=== PATIENT | female | born 1970 | race African-American/Black ===

== ENCOUNTER 2016-12-17 19:23 | Observation (INO) | payer MEDICARE, BC ==
[~2016-12-17 19:23] MED LIST: ASPI81CH CHEW; PLAV75TA29 PO; PRAV40TA PO; VERA1TAB9 PO
[2016-12-17 19:24] VITALS: BP 167/96; PULSE 71; RESP 16; TEMP 98.3; O2SAT 100
[2016-12-17] MEDS ORDERED: METO50TA PO (20:07)
[2016-12-17] MEDS ORDERED: LEVE500T8 PO (20:07)
[2016-12-17] MEDS ORDERED: BUTA1TAB30 PO (20:07)
[2016-12-17] MEDS ORDERED: SODIUM CHLORIDE 0.9% FLUSH 10 ML FLUSH IVF PRN (20:15)
[2016-12-17 20:22] VITALS: BP 168/100; O2SAT 100
--- NOTE | 2016-12-17 20:29 | PD ---
HPI Chief Complaint: Chest Pain Time Seen by Provider: 19:50 Travel History International Travel<30 days: No Contact w/Intl Traveler<30days: No Traveled to known affect area: No History of Present Illness HPI Patient comes in complaining of substernal chest pain that began this morning. Pain is constant there, but wax and wanes in intensity. Describes pain as a pressure-like in nature. Denies anything making it better or worse. Patient reports 2 weeks ago she had internal heart monitor removed in [place]. Patient states the monitor was placed here locally by Dr. Rajan noriega in March of 2014. Patient denies any shortness of breath, numbness tingling anywhere, fevers, neck pain, dull pain, loss change in bowel or bladder. Patient reports 2 days ago she was having some vomiting and yesterday she noticed some increased weakness in her right upper and lower extremities that she reports residual from previous stroke. Patient takes Plavix and aspirin at bedtime. Patient does not have a neurologist here locally but she use to see Dr. Teixeira. Patient states she just came back to the area a week ago. Patient reports her last stress test was in 2013 and denies ever having a cardiac catheter. PFSH Past Medical History Hx Anticoagulant Therapy: Yes Anemia: Yes (RECD TRANSFUSIONS 12/06/07) Blood Disorders: Yes (ANEMIA) Anxiety: No Depression: No Cancer: No Cardiovascular Problems: Yes (had an internal heart monitor which has been removed ) Chemotherapy: No Cerebrovascular Accident: Yes Diabetes: No Diminished Hearing: No Endocrine: No Gastrointestinal Disorders: No Glaucoma: No Genitourinary: No Hepatitis: No Hiatal Hernia: No Hypertension: No Immune Disorder: No Implanted Vascular Access Dvce: Yes Medical other: Yes (STROKE 2008, ANEMIA) Musculoskeletal: No Neurologic: Yes (TIA) Psychiatric: No Reproductive: No Respiratory: No Immunizations Current: Yes Radiation Therapy: No Thyroid Disease: No ?: Not : 7 Para: 6 Miscarriage: 1 Tubal Ligation: Yes Past Surgical History Abdominal Surgery: No Body Medical Devices: [employer] Cardiac Surgery: No Ear Surgery: No Endocrine Surgery: No Eye Surgery: No Genitourinary Surgery: No Gynecologic Surgery: Yes (PARTIAL HYSTERECTOMY) Hysterectomy: Yes Neurologic Surgery: No Oral Surgery: No Pacemaker: No Thoracic Surgery: No Other Surgery: Yes Social History Alcohol Use: No Tobacco Use: No Substance Use: No Allergies-Medications (Allergen,Severity, Reaction): Coded Allergies: No Known Allergies (Verified , 12/17/16) Reported Meds & Prescriptions Reported Meds & Active Scripts Active Aspirin 81 Mg Chew 81 Mg CHEW DAILY Plavix (Clopidogrel Bisulfate) 75 Mg Tab 75 Mg PO DAILY Reported Metoprolol Tartrate 50 Mg Tab 50 Mg PO BID Levetiracetam 500 Mg Tab 500 Mg PO BID Butalbital-Acetaminophen 50-325 Mg Tab 1 Tab PO Q12HR PRN Do not exceed 6 tablets per day. Review of Systems Except as stated in HPI: all other systems reviewed are Neg Physical Exam Narrative GENERAL: Well-developed, overly nourished, in no acute distress, and non-ill appearing. SKIN: Focused skin assessment warm and dry. HEAD: Atraumatic. Normocephalic. EYES: Pupils equal and round. EOMI. No scleral icterus. No injection or drainage. ENT: No nasal bleeding or discharge. Mucous membranes pink and moist. NECK: Trachea midline. Supple. No nuclear rigidity. CARDIOVASCULAR: Regular rate and rhythm. No murmur appreciated. RESPIRATORY: No accessory muscle use. No respiratory distress. Clear to auscultation. Breath sounds equal bilaterally. GASTROINTESTINAL: Abdomen soft, non-tender, nondistended. Hepatic and splenic margins not palpable. Normal bowel sounds 4. No pulsatile mass. MUSCULOSKELETAL: No obvious deformities. No clubbing. No cyanosis. No edema. Full range of motion. Shoulder:FROM equal BL with passive flexion, extension, Abduction, Adduction, internal/external rotation, and pronation/supination. Sensation equal BL deltoid muscles. Pulses equal BL distal to injury. Capillary refill less than 2 seconds distal to injury and equal BL. FROM distal to injury and equal BL. Strength distal to injury equal BL. NV intact distal to injury equal BL. Flexion and extension of thumb equal BL. Equal strength and movement with abduction/adductions of BL fingers. Brand Ambassador strength equal BL. Strength 5 out of 5 and equal bilaterally with plantar and dorsiflexion. Sensation intact over first web spacing bilaterally. NEUROLOGICAL: Awake and alert. No obvious cranial nerve deficits. Motor grossly within normal limits. Normal speech. No facial droop. No tongue deviation. Equal Rise and Fall of the Eyebrows. PSYCHIATRIC: Appropriate mood and affect; insight and judgment normal. Data Data Last Documented VS Vital Signs Date Time Temp Pulse Resp B/P Pulse Ox O2 Delivery O2 Flow Rate FiO2 12/17/16 20:22 100 Room Air 12/17/16 20:22 168/100 12/17/16 19:24 98.3 71 16 Orders Electrocardiogram (12/17/16 20:15) Basic Metabolic Panel (Bmp) (12/17/16 20:15) Ckmb (Isoenzyme) Profile (12/17/16 20:15) Complete Blood Count With Diff (12/17/16 20:15) Magnesium (Mg) (12/17/16 20:15) Prothrombin Time / Inr (Pt) (12/17/16 20:15) Act Partial Throm Time (Ptt) (12/17/16 20:15) Troponin I (12/17/16 20:15) Chest, Single Ap (12/17/16 20:15) Ecg Monitoring (12/17/16 20:15) Bilateral Bp Monitoring (12/17/16 20:15) Iv Access Insert/Monitor (12/17/16 20:15) Oximetry (12/17/16 20:15) Oxygen Administration (12/17/16 20:15) Sodium Chloride 0.9% Flush (Ns Flush) (12/17/16 20:15) Ct Brain W/O Iv Contrast(Rout) (12/17/16 ) CKMB (12/17/16 20:25) CKMB% (12/17/16 20:25) Aspirin Chew (Aspirin Chew) (12/17/16 23:00) Nitroglycerin 2% Oint (Nitroglycerin 2% (12/17/16 23:00) Clopidogrel (Plavix) (12/17/16 23:00) Admit Order (Ed Use Only) (12/17/16 23:02) Activity Bed Rest With Brp (12/17/16 23:03) Vital Signs (Adult) Q4H (12/17/16 23:03) Cardiac Rhythm .As Directed (12/17/16 23:03) Notify Dr: Other .PRN (12/17/16 23:03) Notify Parameters (12/17/16 23:03) Resp Oxygen Nasal Cannula (12/17/16 ) Ckmb (Isoenzyme) Profile (12/17/16 23:25) Ckmb (Isoenzyme) Profile (12/18/16 02:25) Troponin I (12/17/16 23:25) Troponin I (12/18/16 02:25) Electrocardiogram (12/17/16 23:25) Electrocardiogram (12/18/16 02:25) ^ Obtain (12/17/16 23:03) Sodium Chloride 0.9% Flush (Ns Flush) (12/17/16 23:15) Sodium Chloride 0.9% Flush (Ns Flush) (12/18/16 09:00) Club Director / Telemetry PEÑA.Q8H (12/17/16 23:03) Labs Laboratory Tests Test 12/17/16 20:25 White Blood Count 7.0 TH/MM3 Red Blood Count 4.20 MIL/MM3 Hemoglobin 12.5 GM/DL Hematocrit 37.0 % Mean Corpuscular Volume 88.1 FL Mean Corpuscular Hemoglobin 29.7 PG Mean Corpuscular Hemoglobin 33.7 % Concent Red Cell Distribution Width 13.6 % Platelet Count 304 TH/MM3 Mean Platelet Volume 8.1 FL Neutrophils (%) (Auto) 34.8 % Lymphocytes (%) (Auto) 56.0 % Monocytes (%) (Auto) 8.2 % Eosinophils (%) (Auto) 0.6 % Basophils (%) (Auto) 0.4 % Neutrophils # (Auto) 2.4 TH/MM3 Lymphocytes # (Auto) 3.9 TH/MM3 Monocytes # (Auto) 0.6 TH/MM3 Eosinophils # (Auto) 0.0 TH/MM3 Basophils # (Auto) 0.0 TH/MM3 CBC Comment DIFF FINAL Differential Comment Prothrombin Time 10.1 SEC Prothromb Time International 0.9 RATIO Ratio Activated Partial 25.5 SEC Thromboplast Time Sodium Level 136 MEQ/L Potassium Level 6.3 MEQ/L Chloride Level 104 MEQ/L Carbon Dioxide Level 27.1 MEQ/L Anion Gap 5 MEQ/L Blood Urea Nitrogen 13 MG/DL Creatinine 0.93 MG/DL Estimat Glomerular Filtration 78 ML/MIN Rate Random Glucose 93 MG/DL Calcium Level 8.7 MG/DL Magnesium Level 2.0 MG/DL Total Creatine Kinase 102 U/L Creatine Kinase MB 0.6 NG/ML Troponin I LESS THAN 0.02 NG/ML MDM Medical Decision Making Medical Screen Exam Complete: Yes Emergency Medical Condition: Yes Interpretation(s) Chest x-ray read by the radiologist shows: No evidence of acute cardiopulmonary disease. EKG reviewed by Dr. Talavera shows sinus rhythm with ventricular rate of 62. No STEMI. CT the head read by the radiologist shows: Negative noncontrast CT of the head. Differential Diagnosis CVA, TIA, acute coronary syndrome, electrolyte abnormality, atypical chest pain , unstable angina, other Narrative Course Patient was seen and examined. Laboratory and radiological studies were obtained and reviewed. After negative CT the head patient was given aspirin and Plavix. Elevated potassium was likely from blood being hemolyzed. There are no EKG changes and kidney function is normal. Discussed patient with Dr. Talavera was in agreement with plan of care and disposition. Discussed all findings and plan care of patient, who was agreeable for admission. All questions were answered. Patient remained stable throughout ED course. Diagnosis Primary Impression: Chest pain Qualified Code: R07.9 - Chest pain, unspecified type Admitting Information Admitting Physician Requests: Observation Condition: Stable Johann Adams December 17, 2016 20:29
[2016-12-17 20:35] LABS: AUTOMATED NEUTROPHIL # 2.4 TH/MM3 (1.8-7.7); BASOPHIL % 0.4 % (0.0-2.0); EOSINOPHIL % 0.6 % (0.0-4.0); HEMO FLAGS DIFF FINAL; LYMPHOCYTE # 3.9 TH/MM3 (1.0-4.8); MEAN CELL VOLUME 88.1 FL (80.0-100.0); MEAN CORPUSCULAR HEMOGLOBIN 29.7 PG (27.0-34.0); MEAN CORPUSCULAR HGB CONC 33.7 % (32.0-36.0); MONO % 8.2 % (0.0-8.0); NEUT % 34.8 % (16.0-70.0); PLATELET COUNT 304 TH/MM3 (150-450); RED CELL DISTRIBUTION WIDTH 13.6 % (11.6-17.2)
--- NOTE | 2016-12-17 20:40 | RADRPT ---
EXAM DATE/TIME: 12/17/2016 20:17 [facility] COMPARISON: CHEST PA & LAT, May 07, 2014, 17:53. INDICATIONS : Left sided chest pain. MEDICAL HISTORY : Stroke. 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 ENCOUNTER: Initial ACUITY: 1 day PAIN SCORE: 4/10 LOCATION: Left chest FINDINGS: A single view of the chest demonstrates the lungs to be symmetrically aerated without evidence of mas s, infiltrate or effusion. The cardiomediastinal contours are unremarkable. Osseous structures are intact. CONCLUSION: No evidence of acute cardiopulmonary disease. David Arthur MD on December 17, 2016 at 20:38 Board Certified Radiologist. This report was verified electronically.
[2016-12-17 21:03] LABS: APTT (PATIENT) 25.5 SEC (24.3-30.1); INTERNATIONAL NORMALIZED RATIO 0.9 RATIO; PROTHROMBIN TIME - PATIENT 10.1 SEC (9.8-11.6)
[2016-12-17 21:20] LABS: ANION GAP 5 MEQ/L (5-15); BICARBONATE 27.1 MEQ/L (21.0-32.0); BLOOD UREA NITROGEN 13 MG/DL (7-18); CHLORIDE 104 MEQ/L (98-107); CREATINE KINASE 102 U/L (26-192); GLOMERULAR FILTRATION RATE 78 ML/MIN (>89); SODIUM (NA) 136 MEQ/L (136-145)
[2016-12-17 21:21] LABS: POTASSIUM 6.3 MEQ/L (3.5-5.1)
[2016-12-17 21:34] LABS: CKMB 0.6 NG/ML (0.5-3.6)
--- NOTE | 2016-12-17 22:32 | RADRPT ---
EXAM DATE/TIME: 12/17/2016 22:02 [facility] COMPARISON: CT BRAIN W/O CONTRAST, June 23, 2016, 6:11. INDICATIONS : Right sided weakness. RADIATION DOSE: 45.38 CTDIvol (mGy) MEDICAL HISTORY : Cerebrovascular disease. Cardiovascular disease SURGICAL HISTORY : Hysterectomy. ENCOUNTER: Initial ACUITY: 1 day PAIN SCALE: 0/10 LOCATION: cranial TECHNIQUE: Multiple contiguous axial images were obtained of the head. Using automated exposure control and adj ustment of the mA and/or kV according to patient size, radiation dose was kept as low as reasonably a chievable to obtain optimal diagnostic quality images. FINDINGS: CEREBRUM: The ventricles are normal for age. No evidence of midline shift, mass lesion, hemorrhage or acute in farction. No extra-axial fluid collections are seen. POSTERIOR FOSSA: The cerebellum and brainstem are intact. The 4th ventricle is midline. The cerebellopontine angle i s unremarkable. EXTRACRANIAL: The visualized portion of the orbits is intact. SKULL: The calvaria is intact. No evidence of skull fracture. CONCLUSION: Negative noncontrast head CT. David Arthur MD on December 17, 2016 at 22:30 Board Certified Radiologist. This report was verified electronically.
[2016-12-17] MEDS ORDERED: ASPIRIN 81 MG CHEW TAB PO ONE (23:00)
[2016-12-17] MEDS ORDERED: CLOPIDOGREL 75 MG TAB PO ONE (23:00)
[2016-12-17] MEDS ORDERED: NITROGLYCERIN 2% OINT 1 GM PACKET TOP ONE (23:00)
[2016-12-17] MEDS ORDERED: SODIUM CHLORIDE 0.9% FLUSH 10 ML FLUSH IV FLUSH PRN (23:15)
[2016-12-17 23:42] VITALS: BP 140/81; PULSE 72; RESP 16; O2SAT 98
[2016-12-18 00:29] VITALS: BP 115/75; PULSE 77; RESP 18; TEMP 97.6; O2SAT 97
[2016-12-18 01:46] LABS: CREATINE KINASE 44 U/L (26-192)
[2016-12-18 01:56] VITALS: PULSE 75
[2016-12-18 03:11] LABS: CREATINE KINASE 45 U/L (26-192)
[2016-12-18 03:43] VITALS: BP 96/57; PULSE 63; RESP 18; TEMP 97.9; O2SAT 100
[2016-12-18 04:00] VITALS: PULSE 73
[2016-12-18 08:15] LABS: BICARBONATE 28.7 MEQ/L (21.0-32.0); POTASSIUM 3.9 MEQ/L (3.5-5.1)
[2016-12-18 08:19] VITALS: BP 116/73; PULSE 66; RESP 18; TEMP 98.4; O2SAT 97
--- NOTE | 2016-12-18 08:37 | HHI.DCPOC ---
Discharge Care Plan Diagnosis: (1) Chest pain, atypical (2) Hypertension (3) Hyperlipidemia Goals to Promote Your Health * To prevent worsening of your condition and complications * To maintain your health at the optimal level Directions to Meet Your Goals Take your medications as prescribed Follow your dietary instruction Follow activity as directed Keep your appointments as scheduled Take your immunizations and boosters as scheduled If your symptoms worsen call your PCP, if no PCP go to Urgent Care Center or Emergency Room Smoking is Dangerous to Your Health. Avoid second hand smoke Call the 24-hour hour crisis hotline for domestic abuse at [facility] December 18, 2016 08:37
--- NOTE | 2016-12-18 08:42 | HHI.HP ---
HPI Primary Care Physician No Primary Care Physician Chief Complaint Chest pain History of Present Illness This is a 46-year-old female that presents to ED with a complaint of a left- sided chest discomfort that began yesterday morning. It felt like contractions. Would last a few seconds but continued to recur. She had no shortness breath nausea or diaphoresis with the symptoms. She states that couple weeks ago while in [place] she had a loop recorder removed and the dentist/owner told her that she ever had the chest pain to go immediately to the hospital. She is moving back to this area. Does not have a dentist/owner at the time. Denies history of CAD. Denies calf pain or swelling. Denies inspirational chest discomfort. Review of Systems General: Patient denies fevers, chills recent, and recent travel HEENT: Patient denies headache, sore throat, difficulty swallowing. Cardiovascular: Has the chest discomfort as mentioned above. Denies sensation of heart beating rapidly or irregularly. No syncope. Denies diaphoresis. Respiratory: Denies shortness of breath or inspirational chest discomfort. Denies coughing wheezing or hemoptysis. GI: Patient denies nausea, vomiting, diarrhea, abdominal pain, bloody stools. Musculoskeletal: Patient denies joint pain or edema. Denies calf pain or edema. Neurovascular: Patient denies numbness, tingling, weakness in extremities. Denies headache. Endocrine: Denies polyuria and polydipsia. Hematologic: Denies easy bruising. Skin: Denies rash or itching. Past Family Social History Allergies: Coded Allergies: No Known Allergies (Verified , 12/17/16) Past Medical History History of CVA, TIA, hyperlipidemia, hypertension. Denies diabetes and CAD. Past Surgical History Knee surgery. She had a loop recorder removed a couple weeks ago in [place]. Partial hysterectomy Reported Medications Reported Meds & Active Scripts Active Aspirin 81 Mg Chew 81 Mg CHEW DAILY Plavix (Clopidogrel Bisulfate) 75 Mg Tab 75 Mg PO DAILY Reported Metoprolol Tartrate 50 Mg Tab 50 Mg PO BID Levetiracetam 500 Mg Tab 500 Mg PO BID Butalbital-Acetaminophen 50-325 Mg Tab 1 Tab PO Q12HR PRN Do not exceed 6 tablets per day. Active Ordered Medications Current Medications Medications (Trade) Dose Ordered Sig/Tigre Route Start Time Stop Time Status Last Admin (NS Flush) 2 ml UNSCH PRN IVF 12/17/16 20:15 (NS Flush) 2 ml UNSCH PRN IV FLUSH 12/17/16 23:15 (NS Flush) 2 ml BID IV FLUSH 12/18/16 09:00 Family History Denies family history of CAD. Social History Patient does not smoke. Physical Exam Vital Signs Vital Signs Date Time Temp Pulse Resp B/P Pulse Ox O2 Delivery O2 Flow Rate FiO2 12/18/16 08:19 98.4 66 18 116/73 97 12/18/16 06:53 21 12/18/16 04:00 73 12/18/16 03:43 97.9 63 18 96/57 100 12/18/16 01:56 75 12/18/16 00:29 97.6 77 18 115/75 97 12/17/16 23:42 72 16 140/81 98 Room Air 12/17/16 20:22 100 Room Air 12/17/16 20:22 100 Room Air 12/17/16 20:22 168/100 12/17/16 19:24 98.3 71 16 167/96 100 Room Air Physical Exam GENERAL: This is a well-nourished, well-developed patient, in no apparent distress. Patient speaks in clear complete sentences. Patient is pleasant. HEENT: Head is atraumatic and normocephalic. Neck is supple without lymphadenopathy and trachea is midline. No JVD or carotid bruits. CARDIOVASCULAR: Regular rate and rhythm without murmurs, gallops, or rubs. RESPIRATORY: Clear to auscultation. Breath sounds equal bilaterally. No wheezes , rales, or rhonchi. Chest wall is nontender. No use of accessory muscles. GASTROINTESTINAL: Abdomen is nontender, nondistended. Abdomen soft. No obvious pulsatile mass or bruit. No CVA tenderness. Strong femoral pulses bilaterally. Normal bowel sounds in all quadrants. MUSCULOSKELETAL: Patient is moving upper and lower extremities freely. No calf tenderness or edema, no Homans sign. Strong pulses in upper and lower extremities. NEUROLOGICAL: Patient is alert and oriented. Cranial nerves 2-12 are grossly intact. No focal deficits and speech is clear. SKIN: No rash and turgor is normal. Laboratory Laboratory Tests Test 12/17/16 12/17/16 12/18/16 12/18/16 20:25 23:47 02:25 07:44 White Blood Count 7.0 Red Blood Count 4.20 Hemoglobin 12.5 Hematocrit 37.0 Mean Corpuscular Volume 88.1 Mean Corpuscular Hemoglobin 29.7 Mean Corpuscular Hemoglobin 33.7 Concent Red Cell Distribution Width 13.6 Platelet Count 304 Mean Platelet Volume 8.1 Neutrophils (%) (Auto) 34.8 Lymphocytes (%) (Auto) 56.0 Monocytes (%) (Auto) 8.2 Eosinophils (%) (Auto) 0.6 Basophils (%) (Auto) 0.4 Neutrophils # (Auto) 2.4 Lymphocytes # (Auto) 3.9 Monocytes # (Auto) 0.6 Eosinophils # (Auto) 0.0 Basophils # (Auto) 0.0 CBC Comment DIFF FINAL Differential Comment Prothrombin Time 10.1 Prothromb Time International 0.9 Ratio Activated Partial 25.5 Thromboplast Time Sodium Level 136 139 Potassium Level 6.3 3.9 Chloride Level 104 105 Carbon Dioxide Level 27.1 28.7 Anion Gap 5 5 Blood Urea Nitrogen 13 10 Creatinine 0.93 0.76 Estimat Glomerular Filtration 78 99 Rate Random Glucose 93 97 Calcium Level 8.7 8.5 Magnesium Level 2.0 Total Creatine Kinase 102 44 45 Creatine Kinase MB 0.6 Troponin I LESS THAN 0.02 LESS THAN 0.02 LESS THAN 0.02 Result Diagram: 12/17/16202412/18/16 0744 Imaging Last 48 hours Impressions Chest X-Ray 12/17/162014 Signed Impressions: Service Date/Time: Saturday, December 17, 2016 20:17 - CONCLUSION: No evidence of acute cardiopulmonary disease. David Arthur MD Head CT 12/17/16 0000 Signed Impressions: Service Date/Time: Saturday, December 17, 2016 22:02 - CONCLUSION: Negative noncontrast head CT. David Arthur MD Course EKGs have sinus rhythm. Occasional PVCs. No significant ST segment depressions or elevations. Assessment and Plan Assessment and Plan * Chest pain: Her discomforts are atypical. She has been seen by Dr. Isaac Biggs of cardiology in the chest pain center and has had serial EKGs and troponins for ruling out purposes. There will be no further testing. Patient will be discharged home at this time with instructions to follow-up with a local physician. * History of CVA and TIA: Continue current medications. * Hypertension: Continue current medication. * Hyperkalemia: Her potassium was 6.3 initially in the ED. Hemostasis is noted in the lab. A repeated basic metabolic panel this morning reveals a potassium of 3.9. Patient is stable at this time. She is agreeable to this plan. [facility] December 18, 2016 08:42
[2016-12-18] MEDS ORDERED: SODIUM CHLORIDE 0.9% FLUSH 10 ML FLUSH IV FLUSH SCH (09:00)
--- NOTE | 2016-12-18 14:57 | EKG ---
Date Performed: 12/18/2016 Time Performed: 02:39:39 PTAGE: 46 years EKG: Sinus rhythm WITH OCCASIONAL VENTRICULAR PREMATURE COMPLEXES NONSPECIFIC T-WAVE ABNORMALITY BORDERLINE ECG PREVIOUS TRACING : 12/17/2016 23.49 Since previous tracing, no significant change noted DOCTOR: Isaac Biggs Interpretating Date/Time 12/18/2016 14:55:45
--- NOTE | 2016-12-18 14:58 | EKG ---
Date Performed: 12/17/2016 Time Performed: 23:49:43 PTAGE: 46 years EKG: Sinus rhythm ABNORMAL ECG PREVIOUS TRACING : 06/16/2016 22.19 Since previous tracing, no significant change noted DOCTOR: Isaac Biggs Interpretating Date/Time 12/18/2016 14:56:32
--- NOTE | 2016-12-18 14:59 | EKG ---
Date Performed: 12/17/2016 Time Performed: 20:18:02 PTAGE: 46 years EKG: Sinus rhythm NORMAL ECG NO PREVIOUS TRACING DOCTOR: Isaac Biggs Interpretating Date/Time 12/18/2016 14:57:11
== END 2016-12-18 10:46 | disposition home or self-care (01) ==
LOC: NEPE 19:23 → NEDA 23:04 → NEPHCDU 12-18 00:04
DX: R07.89 Other chest pain (principal); E78.5 Hyperlipidemia, unspecified; I10 Essential (primary) hypertension; E87.5 Hyperkalemia; Z86.73 Personal history of transient ischemic attack (TIA), and cerebral infarction without residual deficits; Z79.82 Long term (current) use of aspirin; Z79.02 Long term (current) use of antithrombotics/antiplatelets
CPT/HCPCS: 70450; 71010; 80048; 82550; 82552; 83735; 84484; 85025; 85610; 85730; 93005; G0378

== ENCOUNTER 2017-02-04 15:16 | Observation (INO) | payer MEDICARE, OTHER ==
[~2017-02-04] VITALS: Ht 165.1 cm; Wt 105.0 kg
[~2017-02-04 15:16] MED LIST changes: +BUTA1TAB30 PO; +LEVE500T8 PO; +METO50TA PO; -PRAV40TA PO; -VERA1TAB9 PO
[2017-02-04 18:47] VITALS: BP 157/84; PULSE 88; RESP 20; TEMP 97.8; O2SAT 99
[2017-02-04] MEDS ORDERED: ASPI325T PO (18:58)
[2017-02-04] MEDS ORDERED: SODIUM CHLORIDE 0.9% FLUSH 10 ML FLUSH IVF PRN (19:15)
--- NOTE | 2017-02-04 19:15 | PD ---
HPI Chief Complaint: Seizure Time Seen by Provider: 19:15 Travel History International Travel<30 days: No Contact w/Intl Traveler<30days: No Traveled to known affect area: No History of Present Illness HPI 46-year-old female presents to the emergency department for evaluation of seizure that occurred this afternoon. Patient's daughter states she witnessed the seizure. She states that she was sitting on the couch and she started to blink rapidly looking off to the side. She then started having convulsing of all her joints. Her states this lasted approximately 6 minutes. Her daughter states that she did not hit her head as she was lying on the couch. The patient reports history of seizures since around gi. She states she is on Keppra. She also states that since around 2:30 this afternoon, she is had some worsening left-sided weakness. She reports chronic mild left-sided weakness from previous CVA, but states it is worse than normal. She also states the left side of her face feels weak. She also reports a mild headache. She denies any chest pain or shortness of breath. No abdominal pain. No vomiting. Patient is on Plavix. PFSH Past Medical History Hx Anticoagulant Therapy: Yes Anemia: Yes (RECD TRANSFUSIONS 12/06/07) Blood Disorders: Yes (ANEMIA) Anxiety: No Depression: No Cancer: No Cardiovascular Problems: Yes Chemotherapy: No Cerebrovascular Accident: Yes Diabetes: No Diminished Hearing: No Endocrine: No Gastrointestinal Disorders: No Glaucoma: No Genitourinary: No Hepatitis: No Hiatal Hernia: No Hypertension: No Immune Disorder: No Implanted Vascular Access Dvce: Yes Medical other: Yes (STROKE 2008, ANEMIA) Musculoskeletal: No Neurologic: Yes (TIA) Psychiatric: No Reproductive: No Respiratory: No Immunizations Current: Yes Radiation Therapy: No Thyroid Disease: No Tetanus Vaccination: < 5 Years ?: Not : 7 Para: 6 Miscarriage: 1 Tubal Ligation: Yes Past Surgical History Abdominal Surgery: No 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 Cardiac Surgery: No Ear Surgery: No Endocrine Surgery: No Eye Surgery: No Genitourinary Surgery: No Gynecologic Surgery: Yes (PARTIAL HYSTERECTOMY) Hysterectomy: Yes Joint Replacement: Yes (lt knee 2016) Neurologic Surgery: No Oral Surgery: No Pacemaker: No Thoracic Surgery: No Other Surgery: Yes Social History Alcohol Use: No Tobacco Use: No Substance Use: No Allergies-Medications (Allergen,Severity, Reaction): Coded Allergies: No Known Allergies (Verified , 02/04/17) Reported Meds & Prescriptions Reported Meds & Active Scripts Active Aspirin 81 Mg Chew 81 Mg CHEW DAILY Plavix (Clopidogrel Bisulfate) 75 Mg Tab 75 Mg PO DAILY Reported Aspirin 325 Mg Tab 325 Mg PO DAILY Metoprolol Tartrate 50 Mg Tab 50 Mg PO BID Levetiracetam 500 Mg Tab 500 Mg PO BID Butalbital-Acetaminophen 50-325 Mg Tab 1 Tab PO Q12HR PRN Do not exceed 6 tablets per day. Review of Systems Except as stated in HPI: all other systems reviewed are Neg Physical Exam Narrative GENERAL: Well-nourished, well-developed female patient, afebrile SKIN: Focused skin assessment warm/dry. HEAD: Normocephalic. Atraumatic. EYES: No scleral icterus. No injection or drainage. NECK: Supple, trachea midline. No JVD or lymphadenopathy. CARDIOVASCULAR: Regular rate and rhythm without murmurs, gallops, or rubs. Bilateral radial and pedal pulses are 2+. RESPIRATORY: Breath sounds equal bilaterally. No accessory muscle use. Lungs sounds are clear to auscultation. GASTROINTESTINAL: Abdomen soft, non-tender, nondistended. MUSCULOSKELETAL: No cyanosis, or edema. Left upper extremity strength 4/5, right upper extremity strength 5/5. Left lower extremities strength 4/5, right lower extremity strength 5/5. All extremities are neurovascularly intact. BACK: Nontender without obvious deformity. No CVA tenderness. NEUROLOGICAL: Awake and alert. Cranial nerves II through XII intact. Motor and sensory grossly within normal limits. Normal speech. Finger to nose is normal bilaterally. Patient unable to complete heel to hart due to history of knee replacement surgery. Data Data Last Documented VS Vital Signs Date Time Temp Pulse Resp B/P Pulse Ox O2 Delivery O2 Flow Rate FiO2 02/04/17 19:35 95 17 100 Room Air 02/04/17 19:35 140/93 02/04/17 18:47 97.8 Orders Electrocardiogram (02/04/17 19:13) Prothrombin Time / Inr (Pt) (02/04/17 19:13) Act Partial Throm Time (Ptt) (02/04/17 19:13) Complete Blood Count With Diff (02/04/17 19:13) Comprehensive Metabolic Panel (02/04/17 19:13) Creatine Kinase (Cpk) (02/04/17 19:13) Drug Screen, Random Urine (02/04/17 19:13) Troponin I (02/04/17 19:13) Urinalysis - C+S If Indicated (02/04/17 19:13) Ct Brain W/O Iv Contrast(Rout) (02/04/17 19:13) Chest, Single Ap (02/04/17 19:13) Ecg Monitoring (02/04/17 19:13) Iv Access Insert/Monitor (02/04/17 19:13) Oximetry (02/04/17 19:13) Sodium Chloride 0.9% Flush (Ns Flush) (02/04/17 19:15) Admit Order (Ed Use Only) (02/04/17 20:41) Labs Laboratory Tests Test 02/04/17 19:20 White Blood Count 7.7 TH/MM3 Red Blood Count 4.23 MIL/MM3 Hemoglobin 12.5 GM/DL Hematocrit 36.6 % Mean Corpuscular Volume 86.6 FL Mean Corpuscular Hemoglobin 29.5 PG Mean Corpuscular Hemoglobin 34.1 % Concent Red Cell Distribution Width 12.7 % Platelet Count 306 TH/MM3 Mean Platelet Volume 7.9 FL Neutrophils (%) (Auto) 66.0 % Lymphocytes (%) (Auto) 27.2 % Monocytes (%) (Auto) 6.0 % Eosinophils (%) (Auto) 0.1 % Basophils (%) (Auto) 0.7 % Neutrophils # (Auto) 5.1 TH/MM3 Lymphocytes # (Auto) 2.1 TH/MM3 Monocytes # (Auto) 0.5 TH/MM3 Eosinophils # (Auto) 0.0 TH/MM3 Basophils # (Auto) 0.1 TH/MM3 CBC Comment DIFF FINAL Differential Comment Prothrombin Time 10.2 SEC Prothromb Time International 0.9 RATIO Ratio Activated Partial 24.8 SEC Thromboplast Time Sodium Level 136 MEQ/L Potassium Level 3.9 MEQ/L Chloride Level 104 MEQ/L Carbon Dioxide Level 24.7 MEQ/L Anion Gap 7 MEQ/L Blood Urea Nitrogen 9 MG/DL Creatinine 0.79 MG/DL Estimat Glomerular Filtration 94 ML/MIN Rate Random Glucose 101 MG/DL Calcium Level 9.1 MG/DL Total Bilirubin 0.3 MG/DL Aspartate Amino Transf 16 U/L (AST/SGOT) Alanine Aminotransferase 15 U/L (ALT/SGPT) Alkaline Phosphatase 102 U/L Total Creatine Kinase 117 U/L Troponin I 0.03 NG/ML Total Protein 7.6 GM/DL Albumin 3.5 GM/DL MDM Medical Decision Making Medical Screen Exam Complete: Yes Emergency Medical Condition: Yes Medical Record Reviewed: Yes Interpretation(s) Last Impressions Head CT 02/04/17 5993 Signed Impressions: Service Date/Time: Saturday, February 04, 2017 19:55 - CONCLUSION: Negative noncontrast CT Raul Montanez MD Chest x-ray - CONCLUSION: No acute disease. Differential Diagnosis Seizure versus CVA versus TIA versus electrolyte abnormality versus intracranial abnormality Narrative Course 46-year-old female presents to the emergency department for evaluation of seizure, now complaining of worsening left-sided weakness. Patient has history of seizures, CVA. EKG shows bigeminy, heart rate 85. CMP, CK, troponin, PTT, PTT/INR, UA, urine drug screen, CT of the brain, chest x-ray are ordered and pending. CBC is unremarkable. CMP is unremarkable. CK is 117. Troponin is 0.03. Coags are unremarkable. Chest x-ray shows no acute disease. CT of the brain is negative Patient will be admitted for 23 hour observation for seizure, r/o CVA. Dr. Mancia accepted admission. Diagnosis Primary Impression: Seizure Additional Impression: CVA (cerebral infarction) Admitting Information Admitting Physician Requests: Observation Kendy Mccrary Feb 04, 2017 19:15
[2017-02-04 19:35] VITALS: BP 140/93; PULSE 79; RESP 13; O2SAT 98
[2017-02-04 19:49] LABS: AUTOMATED NEUTROPHIL # 5.1 TH/MM3 (1.8-7.7); BASOPHIL # 0.1 TH/MM3 (0-0.2); BASOPHIL % 0.7 % (0.0-2.0); EOSINOPHIL % 0.1 % (0.0-4.0); HEMATOCRIT 36.6 % (35.0-46.0); HEMO FLAGS DIFF FINAL; LYMPH % 27.2 % (9.0-44.0); LYMPHOCYTE # 2.1 TH/MM3 (1.0-4.8); MEAN CELL VOLUME 86.6 FL (80.0-100.0); MEAN CORPUSCULAR HEMOGLOBIN 29.5 PG (27.0-34.0); MEAN CORPUSCULAR HGB CONC 34.1 % (32.0-36.0); PLATELET COUNT 306 TH/MM3 (150-450); RED BLOOD COUNT 4.23 MIL/MM3 (4.00-5.30); RED CELL DISTRIBUTION WIDTH 12.7 % (11.6-17.2); WHITE BLOOD COUNT 7.7 TH/MM3 (4.0-11.0)
[2017-02-04 19:52] LABS: APTT (PATIENT) 24.8 SEC (24.3-30.1); INTERNATIONAL NORMALIZED RATIO 0.9 RATIO; PROTHROMBIN TIME - PATIENT 10.2 SEC (9.8-11.6)
[2017-02-04 20:06] LABS: ANION GAP 7 MEQ/L (5-15); AST (GOT) 16 U/L (15-37); BICARBONATE 24.7 MEQ/L (21.0-32.0); BLOOD UREA NITROGEN 9 MG/DL (7-18); CHLORIDE 104 MEQ/L (98-107); GLOMERULAR FILTRATION RATE 94 ML/MIN (>89); POTASSIUM 3.9 MEQ/L (3.5-5.1); SODIUM (NA) 136 MEQ/L (136-145)
[2017-02-04 20:07] LABS: ALT (GPT) 15 U/L (10-53)
[2017-02-04 20:10] LABS: ALKALINE PHOSPHATASE 102 U/L (45-117); CREATINE KINASE 117 U/L (26-192); TOTAL BILIRUBIN ADULT 0.3 MG/DL (0.2-1.0)
--- NOTE | 2017-02-04 20:13 | RADRPT ---
EXAM DATE/TIME: 02/04/2017 19:55 [facility] COMPARISON: CT BRAIN W/O CONTRAST, December 17, 2016, 22:02. INDICATIONS : Possible seizure today, left sided cephalgia. RADIATION DOSE: 56.77 CTDIvol (mGy) MEDICAL HISTORY : Stroke. Cardiovascular disease SURGICAL HISTORY : Hysterectomy. ENCOUNTER: Initial ACUITY: 1 day PAIN SCALE: 7/10 LOCATION: Left head TECHNIQUE: Multiple contiguous axial images were obtained of the head. Using automated exposure control and adj ustment of the mA and/or kV according to patient size, radiation dose was kept as low as reasonably a chievable to obtain optimal diagnostic quality images. DICOM format image data is available electro nically for review and comparison. FINDINGS: CEREBRUM: The ventricles are normal for age. No evidence of midline shift, mass lesion, hemorrhage or acute in farction. No extra-axial fluid collections are seen. POSTERIOR FOSSA: The cerebellum and brainstem are intact. The 4th ventricle is midline. The cerebellopontine angle i s unremarkable. EXTRACRANIAL: The visualized portion of the orbits is intact. SKULL: The calvaria is intact. No evidence of skull fracture. CONCLUSION: Negative noncontrast CT Raul Montanez MD on February 04, 2017 at 20:11 Board Certified Radiologist. This report was verified electronically.
--- NOTE | 2017-02-04 20:14 | RADRPT ---
EXAM DATE/TIME: 02/04/2017 19:39 [facility] COMPARISON: CHEST SINGLE AP, December 17, 2016, 20:17. INDICATIONS : Nausea MEDICAL HISTORY : Cerebrovascular disease. Cardiovascular disease SURGICAL HISTORY : Hysterectomy. ENCOUNTER: Initial ACUITY: 1 day PAIN SCORE: 0/10 LOCATION: Bilateral chest FINDINGS: A single view of the chest demonstrates the lungs to be symmetrically aerated without evidence of mas s, infiltrate or effusion. The cardiomediastinal contours are unremarkable. Osseous structures are intact. CONCLUSION: No acute disease. Raul Montanez MD on February 04, 2017 at 20:12 Board Certified Radiologist. This report was verified electronically.
[2017-02-04] MEDS ORDERED: ONDANSETRON HCL 4 MG/2 ML VIAL IVP PRN (20:45)
[2017-02-04] MEDS ORDERED: NALOXONE HCL 0.4 MG/ML AMP IV PRN (20:45)
[2017-02-04] MEDS ORDERED: LACTULOSE SYRUP 20 GM/30 ML CUP PO PRN (20:45)
[2017-02-04] MEDS ORDERED: MAGNESIUM HYDROXIDE SUSP 30 ML CUP PO PRN (20:45)
[2017-02-04] MEDS ORDERED: SENNOSIDES 8.6 MG TAB PO PRN (20:45)
[2017-02-04] MEDS ORDERED: BISACODYL 10 MG SUPP RECTAL PRN (20:45)
[2017-02-04] MEDS ORDERED: ACETAMINOPHEN 325 MG TAB PO PRN (20:45)
[2017-02-04] MEDS: DOCUSATE SODIUM 50 MG/SENNA 8.6 MG TAB PO SCH (21:15)
--- NOTE | 2017-02-04 21:48 | HHI.HP ---
[facility]Staff Admission Diagnosis seizure, r/o CVA Diagnoses: Chief Complaint: questionable seizure verse cva, nausea, and slurred speech Travel History International Travel<30 Days: No Contact w/Intl Traveler <30 Da: No Traveled to Known Affected Are: No History of Present Illness Written by Chika Almanza, acting as scribe for [Gavino] on 02/04/17 at 21: 50. 46 y/o female with a history of Seizures, TIA, and CVA 2 months ago of presented to the ED by family after having a seizure and slurred speech. Patient just remembers feeling tired. Per the family, she was seen having jerky movements, slurred speech, and was confused. Patient complains of left upper extremity numbness, left sided headache and nausea. Denies any chest pain or sob. Family states she had another episode prior to examination in which patient was unable to speak. All patients Drs are in [place]. Patient states she is compliant with her seizure medications at home. Review of Systems Constitutional: DENIES: Fever, Chills Respiratory: DENIES: Cough, Shortness of breath Cardiovascular: DENIES: Chest pain, Lower Extremity Edema Gastrointestinal: COMPLAINS OF: Nausea, Vomiting, DENIES: Abdominal pain, Constipation, Diarrhea Genitourinary: DENIES: Urinary incontinence, Hematuria, Dysuria Musculoskeletal: DENIES: Back pain, Neck pain Integumentary: DENIES: Rash Hematologic/lymphatic: DENIES: Lymphadenopathy Immunologic/allergic: DENIES: Urticaria Neurologic: COMPLAINS OF: Headache, Localized weakness, Seizures Past Family Social History Past Medical History Seizures TIA CVA 2 months ago Past Surgical History Loop recorder Left knee replacement Partial hysterectomy Reported Medications Reported Meds & Active Scripts Active Aspirin 81 Mg Chew 81 Mg CHEW DAILY Plavix (Clopidogrel Bisulfate) 75 Mg Tab 75 Mg PO DAILY Reported Aspirin 325 Mg Tab 325 Mg PO DAILY Metoprolol Tartrate 50 Mg Tab 50 Mg PO BID Levetiracetam 500 Mg Tab 500 Mg PO BID Butalbital-Acetaminophen 50-325 Mg Tab 1 Tab PO Q12HR PRN Do not exceed 6 tablets per day. Allergies: Coded Allergies: No Known Allergies (Verified , 02/04/17) Active Ordered Medications Current Medications Medications (Trade) Dose Ordered Sig/Tigre Route Start Time Stop Time Status Last Admin (NS Flush) 2 ml UNSCH PRN IVF 02/04/17 19:15 (Tylenol) 650 mg Q4H PRN PO 02/04/17 20:45 (Zofran Inj) 4 mg Q6H PRN IVP 02/04/17 20:45 (Narcan Inj) 0.4 mg UNSCH PRN IV 02/04/17 20:45 (Evelin-Colace) 1 tab BID PO 02/04/17 21:00 (Milk Of Magnesia Liq) 30 ml Q12H PRN PO 02/04/17 20:45 (Senokot) 17.2 mg Q12H PRN PO 02/04/17 20:45 (Dulcolax Supp) 10 mg DAILY PRN RECTAL 02/04/17 20:45 (Lactulose Liq) 30 ml DAILY PRN PO 02/04/17 20:45 Family History Family history significant for Lupus, DM, Leukemia, HTN, hypothyroidism, seizures Dad: Kidney disease, DM Social History Patient denies Physical Exam Vital Signs Vital Signs Date Time Temp Pulse Resp B/P Pulse Ox O2 Delivery O2 Flow Rate FiO2 02/04/17 19:35 95 17 100 Room Air 02/04/17 19:35 79 13 140/93 98 02/04/17 18:47 97.8 88 20 157/84 99 Physical Exam GENERAL: This is a well-nourished, well-developed patient, in no apparent distress. SKIN: No rashes, ecchymoses or lesions. Cool and dry. HEAD: Atraumatic. Normocephalic EYES: Pupils equal round and reactive. Extraocular motions intact. No scleral icterus. No injection or drainage. ENT: Nose without bleeding, purulent drainage or septal hematoma. Throat without erythema, tonsillar hypertrophy or exudate. Uvula midline. Airway patent. NECK: Trachea midline. No JVD or lymphadenopathy. Supple, nontender, no meningeal signs. CARDIOVASCULAR: Regular rate and rhythm without murmurs, gallops, or rubs. RESPIRATORY: Clear to auscultation. Breath sounds equal bilaterally. No wheezes , rales, or rhonchi. GASTROINTESTINAL: Abdomen soft, non-tender, nondistended. No hepato-splenomegaly , or palpable masses. No guarding. MUSCULOSKELETAL: Extremities without clubbing, cyanosis, or edema. No joint tenderness, effusion, or edema noted. No calf tenderness. NEUROLOGICAL: Awake and alert. Left week shoulder shrug, Left sided weakness 4out of 5. Motor and sensory grossly within normal limits. Normal speech. Laboratory Laboratory Tests Test 02/04/17 19:20 White Blood Count 7.7 Red Blood Count 4.23 Hemoglobin 12.5 Hematocrit 36.6 Mean Corpuscular Volume 86.6 Mean Corpuscular Hemoglobin 29.5 Mean Corpuscular Hemoglobin 34.1 Concent Red Cell Distribution Width 12.7 Platelet Count 306 Mean Platelet Volume 7.9 Neutrophils (%) (Auto) 66.0 Lymphocytes (%) (Auto) 27.2 Monocytes (%) (Auto) 6.0 Eosinophils (%) (Auto) 0.1 Basophils (%) (Auto) 0.7 Neutrophils # (Auto) 5.1 Lymphocytes # (Auto) 2.1 Monocytes # (Auto) 0.5 Eosinophils # (Auto) 0.0 Basophils # (Auto) 0.1 CBC Comment DIFF FINAL Differential Comment Prothrombin Time 10.2 Prothromb Time International 0.9 Ratio Activated Partial 24.8 Thromboplast Time Sodium Level 136 Potassium Level 3.9 Chloride Level 104 Carbon Dioxide Level 24.7 Anion Gap 7 Blood Urea Nitrogen 9 Creatinine 0.79 Estimat Glomerular Filtration 94 Rate Random Glucose 101 Calcium Level 9.1 Total Bilirubin 0.3 Aspartate Amino Transf 16 (AST/SGOT) Alanine Aminotransferase 15 (ALT/SGPT) Alkaline Phosphatase 102 Total Creatine Kinase 117 Troponin I 0.03 Total Protein 7.6 Albumin 3.5 Result Diagram: 02/04/17191902/04/171919 Imaging Last Impressions Head CT 02/04/171912 Signed Impressions: Service Date/Time: Saturday, February 04, 2017 19:55 - CONCLUSION: Negative noncontrast CT Raul Montanez MD Chest X-Ray 02/04/171912 Signed Impressions: Service Date/Time: Saturday, February 04, 2017 19:39 - CONCLUSION: No acute disease. Raul Montanez MD Assessment and Plan Problem List: (1) TIA (transient ischemic attack) ICD Code: G45.9 Status: Acute (2) Seizure ICD Code: R56.9 Status: Acute Assessment and Plan 46 y/o female with a history of Seizures, TIA, and CVA 2 months ago of presented to the ED by family after having a seizure and slurred speech. TIA, r/o CVA, patient with left sided weakness CT brain reviewed and negative EKG shows bigeminy -Neuro checks -Consult neuro for recommendations -MRI brain ordered -Resume home medication Plavix and asa -Monitor telemetry Seizure, Patient found to have jerky movements, patient with a history of seizures -Seizure precautions -EEG ordered -Cont home medication Keppra -Await neurology recommendations DVT prophylaxis: SCDs This note was transcribed by karin Almanza. I, Dr. Ethan Mancia personally performed the history, physical exam, and medical decision making; and confirmed the accuracy of the information in the transcribed note. Authenticated by Dr. Ethan Mancia on 02/04/17 at 23:31. Discussed Condition With Patient and patients family Chika Almanza Feb 04, 2017 21:48 Ethan Mancia MD Feb 04, 2017 23:31
[2017-02-04] MEDS ORDERED: levETIRAcetam 500 MG TAB PO SCH (22:15)
[2017-02-04 22:33] VITALS: BP 120/85; PULSE 79; RESP 14; TEMP 97.7; O2SAT 99
[2017-02-04] MEDS ORDERED: GADODIAMIDE PF 287 MG/ML 20 ML VIAL (for RAD MRI) IV ONE (23:45)
--- NOTE | 2017-02-05 00:12 | RADRPT ---
EXAM DATE/TIME: 02/04/2017 23:39 [facility] COMPARISON: MRI BRAIN W & W/O CONTRAST, March 03, 2014, 15:51. INDICATIONS : Seizures. CVA. CONTRAST: 20 cc Omniscan (gadodiamide) IV MEDICAL HISTORY : Hypertension. Cardiovascular disease Stroke SURGICAL HISTORY : Partial hysterectomy. Left knee. ENCOUNTER: Subsequent ACUITY: 1 day PAIN SCORE: 3/10 LOCATION: cranial TECHNIQUE: Multiplanar, multisequence MRI of the brain was performed both prior to and following the administrat ion of paramagnetic contrast. FINDINGS: CEREBRUM: The ventricles are normal for age. No evidence of midline shift, mass lesion, hemorrhage or acute in farction. No extraaxial fluid collections are seen. The pituitary gland and suprasellar cistern are normal in configuration. WHITE MATTER: No significant signal abnormalities are seen in the white matter. POSTERIOR FOSSA: The cerebellum and brainstem are intact with 2 old left cerebellar strokes. The 4th ventricle is mid line. The cerebellopontine angle is unremarkable. The cerebellar tonsils are normal in position. DIFFUSION IMAGING: No focal areas of restricted diffusion are seen. No evidence of acute infarction. EXTRACRANIAL: The visualized portions of the orbits and paranasal sinuses are unremarkable. POST-CONTRAST: No abnormal areas of parenchymal or dural enhancement. No evidence of blood-brain barrier breakdown. CONCLUSION: 2 left cerebellar strokes, chronic and unchanged. The diffusion-weighted sequences are normal today w ithout evidence of stroke. No mass or mass effect. Jt Rothman MD on February 05, 2017 at 0:10 Board Certified Radiologist. This report was verified electronically.
[2017-02-05 00:40] VITALS: PULSE 71
[2017-02-05 03:30] VITALS: PULSE 66
[2017-02-05 04:25] VITALS: BP 121/72; PULSE 71; RESP 16; TEMP 97.9; O2SAT 99
[2017-02-05 08:29] VITALS: BP 111/72; PULSE 68; RESP 20; TEMP 97.6; O2SAT 99
[2017-02-05 08:59] LABS: BICARBONATE 26.2 MEQ/L (21.0-32.0); POTASSIUM 3.7 MEQ/L (3.5-5.1)
[2017-02-05] MEDS ORDERED: ASPIRIN 325 MG TAB PO SCH (09:00)
[2017-02-05] MEDS ORDERED: CLOPIDOGREL 75 MG TAB PO SCH (09:00)
--- NOTE | 2017-02-05 09:20 | HHI.PR ---
Subjective Remarks Follow-up for seizure. The patient doesn't recall much about the seizure episodes yesterday. She does note that she bit her tongue. Currently she feels improved and denies any acute issues overnight. She denies any fatigue, confusion, unsteadiness. She is oriented to person, place, and time. She is hoping to go home today. Previously following with neurology, Dr. Teixeria here, but now follows with a neurologist up in [place] who she will see next month. Reports mild residual left-sided weakness from previous stroke. Objective Vitals Vital Signs Date Time Temp Pulse Resp B/P Pulse Ox O2 Delivery O2 Flow Rate FiO2 02/05/17 08:29 97.6 68 20 111/72 99 02/05/17 04:25 97.9 71 16 121/72 99 02/05/17 03:30 66 02/05/17 00:40 71 02/04/17 22:33 97.7 79 14 120/85 99 02/04/17 19:35 95 17 100 Room Air 02/04/17 19:35 79 13 140/93 98 02/04/17 18:47 97.8 88 20 157/84 99 Result Diagram: 02/04/17 1920 02/05/17 0651 Imaging Last Impressions Head CT 02/04/171912 Signed Impressions: Service Date/Time: Saturday, February 04, 2017 19:55 - CONCLUSION: Negative noncontrast CT Raul Montanez MD Chest X-Ray 02/04/171912 Signed Impressions: Service Date/Time: Saturday, February 04, 2017 19:39 - CONCLUSION: No acute disease. Raul Montanez MD Brain MRI 02/04/17 0000 Signed Impressions: Service Date/Time: Saturday, February 04, 2017 23:39 - CONCLUSION: 2 left cerebellar strokes, chronic and unchanged. The diffusion-weighted sequences are normal today without evidence of stroke. No mass or mass effect. Jt Rothman MD Objective Remarks GENERAL: Well-developed well-nourished. In no acute distress. Oriented 3. SKIN: Warm and dry. No lesions noted. HEENT: Normocephalic. Pupils equal and round. Mucous membranes pink and moist. CARDIOVASCULAR: Regular rate and rhythm. No murmur appreciated. RESPIRATORY: No accessory muscle use. Clear to auscultation. Breath sounds equal bilaterally. GASTROINTESTINAL: Abdomen soft, non-tender, nondistended. Bowel sounds x4. MUSCULOSKELETAL: No obvious deformities. No clubbing or cyanosis. No edema. NEUROLOGICAL: Awake and alert. No focal neurological deficits. Moves upper and lower extremities spontaneously. Normal speech. Strength 5/5. PSYCHIATRIC: Appropriate mood and affect; insight and judgment normal. A/P Problem List: (1) TIA (transient ischemic attack) ICD Code: G45.9 Status: Acute (2) Seizure ICD Code: R56.9 Status: Acute Assessment and Plan 46 y/o female with a history of Seizures, TIA, and CVA 2 months ago of presented to the ED by family after having a seizure and slurred speech. Possible TIA with slurred speech and residual left-sided weakness, r/o CVA Reviewed: CT brain negative. Brain MRI shows 2 old left cerebellar strokes, unchanged, no acute process. -Neuro checks -Consulted neuro, discussed with Dr. Medina, check brain MRA -Continue home Plavix and asa -Monitor on telemetry Possible breakthrough seizure with history of seizure disorder -Seizure precautions -Discussed with neurology, recommended EEG and increasing Keppra -EEG ordered -Cont Keppra, increased DVT prophylaxis: SCDs Discharge Planning Discussed with neurology, if brain MRI and EEG are unremarkable, patient could be discharged for outpatient neurology follow-up with higher dose of Keppra. 181 head and neck MRA unremarkable. EEG shows possible left temporal seizure focus. Discussed with Dr. Medina, patient should be okay to discharge with current increased dose of Keppra, but she needs to follow-up with neurology as outpatient. Seizure precautions discussed with the patient and family at bedside, no driving for 6 months or until cleared by neurology. Stressed the importance of outpatient neurology follow-up, patient plans to follow-up. Discharge home in stable condition with seizure precautions on increased dose of Keppra. Chance Sandoval Feb 05, 2017 09:20
[2017-02-05] MEDS ORDERED: levETIRAcetam 250 MG TAB PO SCH (09:45)
--- NOTE | 2017-02-05 10:04 | MB ---
cc: SULEMAN CHUN MD DATE OF CONSULTATION: 02/05/2017 REASON FOR CONSULTATION Seizure. HISTORY OF PRESENT ILLNESS Ms. Gordon is a 46-year-old -Burm[place] female with past medical history of stroke diagnosed 2 months ago, seizures diagnosed around 2015, as she states, and a previous stroke when she was 34 years of age and she was admitted at [facility] at that time. The patient does not have recent medical records here as she moves back and forth between [facility] and [place]. The patient was transported to the [facility] Emergency Room because of a seizure witnessed by her daughter. She states that she felt tired even though she was well rested and then she does not remember what happened but the daughter told her that her eyes started blinking and she had shaking of the body, foaming from the mouth, denies sphincter control disturbances and then this was followed by a confusional state where she wanted to picker / packer the phone and call but she was unable with weakness of the left side of the body which is already been affected by the previous stroke. The patient denies history of childhood epilepsy or family history of seizures. The patient is on aspirin and Plavix. The patient states that she has done extensive testing 10 years ago here at [facility] when she had her first stroke. Review of medical records reveal unremarkable MRI. A review of the MRI 2007 was unremarkable but with questionable right MCA narrowing. Neck MRA in 2010 was reported with no evidence of hemodynamically significant stenosis. Carotid ultrasound in May 2016 was reported with no significant atherosclerotic disease and there was antegrade flow in both vertebral arteries. The patient is on Keppra 500 mg daily and she is adherent to the medication as she states. REVIEW OF SYSTEMS 12-point review of systems is negative except for what is stated in the HPI. PAST MEDICAL HISTORY 1. Seizures. 2. TIA. 3. Stroke. PAST SURGICAL HISTORY 1. Left knee replacement. 2. Partial hysterectomy. 3. Loop recorder, as she states was unremarkable for irregularity in the heartbeat. MEDICATIONS 1. Aspirin 81. 2. Plavix 75. 3. Metoprolol. 4. Keppra 500 twice. 5. Butalbital/acetaminophen 50/325. ALLERGIES No known allergies. FAMILY HISTORY Positive for lupus, diabetes, leukemia, hypertension, hypothyroidism and seizures. SOCIAL HISTORY The patient denies history of alcohol, drug or smoking abuse. PHYSICAL EXAMINATION GENERAL: Alert, well-nourished, not in acute distress, oriented, good historian. HEENT: Atraumatic, normocephalic. Intact hearing. Intact vision. NECK: Trachea in the midline. Supple. No signs of meningeal irritation. CARDIOVASCULAR: Regular rate and rhythm. RESPIRATORY: Clear to auscultation. No wheezes. GASTROINTESTINAL: Soft abdomen, nontender. MUSCULOSKELETAL: Extremities without clubbing, cyanosis or edema. NEUROLOGIC: Awake, alert, oriented to time, person and place. No dysphasia. No dysarthria. Intact higher mental functions. Motor system examination: The left upper extremity 5-/5 left shoulder abduction and wrist extension/chronic, otherwise 5/5 throughout. No abnormal movement. Normal tone. Sensation is intact bilateral and symmetrical. Left upper extremity [id number] is abnormal. The rest of the cerebellar exam is normal. Reflexes 1+ bilateral symmetrical. Plantar bilaterally downgoing. PSYCHOLOGIC: Normal mood and behavior. LABORATORY DATA White blood cells 7.7, hemoglobin 12.5, platelets 306. Sodium 138, potassium 3.7, anion gap 7, BUN 7, creatinine 0.67, INR 0.9. DIAGNOSTIC IMAGING - Head CT scan without contrast is reported as negative. - Brain MRI with and without contrast revealed two left cerebellar strokes chronic and unchanged, without evidence of stroke and no mass effect. DIAGNOSTIC IMPRESSION 1. History of stroke with residual left-sided upper extremity weakness and incoordination, posterior circulation stroke in the left cerebellar region, currently on aspirin and Plavix. 2. History of seizures. 3. Currently on Keppra 500 mg twice daily. 4. History of questionable arrhythmia with loop recorder that was unremarkable. PLAN 1. Neuro checks q. 4 hourly. 2. MRA neck with contrast. 3. MRA brain with contrast. 4. EEG. 5. Increase Keppra dose to 750 mg twice daily. 6. Continue aspirin and Plavix. 7. DVT prophylaxis. 8. Seizure precautions. 9. GI prophylaxis. Thank you for the opportunity to participate in the care of your patient. MD BRITT Mendoza/TLEmmanuel /9:18 AM /9:39 AM MTDApril
[2017-02-05] MEDS: DOCUSATE SODIUM 50 MG/SENNA 8.6 MG TAB PO SCH (10:12)
[2017-02-05 11:57] VITALS: BP 141/81; PULSE 68; RESP 16; TEMP 97.7; O2SAT 96
--- NOTE | 2017-02-05 14:16 | EKG ---
Date Performed: 02/04/2017 Time Performed: 19:46:50 PTAGE: 46 years EKG: Sinus rhythm WITH FREQUENT VENTRICULAR PREMATURE COMPLEXES IN A BIGEMINAL PATTERN BORDERLINE LEFT AXIS DEVIATION ABNORMAL RHYTHM ECG Compared to PREVIOUS TRACING , ventricular ectopy is new. PREVIOUS TRACIN12/18/2016 02.39 DOCTOR: Darrick Shi Interpretating Date/Time 02/05/2017 14:15:41
[2017-02-05] MEDS ORDERED: GADODIAMIDE PF 287 MG/ML 20 ML VIAL (for RAD MRI) IV ONE (15:42)
[2017-02-05 16:07] VITALS: BP 126/79; PULSE 72; RESP 24; TEMP 98; O2SAT 100
[2017-02-05] MEDS ORDERED: LEVE250 PO (16:39)
--- NOTE | 2017-02-05 17:02 | RADRPT ---
EXAM DATE/TIME: 02/05/2017 15:35 [facility] COMPARISON: No previous studies available for comparison. INDICATIONS : CVA. MEDICAL HISTORY : Hypertension. Seizures. SURGICAL HISTORY : Partial hysterectomy. Left knee. ENCOUNTER: Subsequent ACUITY: 2 day PAIN SCORE: 3/10 LOCATION: cranial Please note a normal MRA of the brain does not entirely exclude the possibility of a small aneurysm, nor the possibility of distal intracranial vessel disease. TECHNIQUE: 3D time of flight MRA was performed. Source images, multiplanar STS MIP, and 3D volume MIP reconstru ctions were reviewed. FINDINGS: There is excellent visualization of the major intracranial arteries out to the second-order branch ve ssels. There is no evidence for aneurysm, vessel truncation or stenosis, and no evidence for vascula r malformation.CONCLUSION: Normal examination. David Bose MD on February 05, 2017 at 17:00 Board Certified Radiologist. This report was verified electronically.
--- NOTE | 2017-02-05 17:04 | RADRPT ---
EXAM DATE/TIME: 02/05/2017 15:35 [facility] COMPARISON: No previous studies available for comparison. INDICATIONS : Stroke. CONTRAST: 20 cc Omniscan (gadodiamide) IV MEDICAL HISTORY : Hypertension. Seizures. SURGICAL HISTORY : Partial hysterectomy. Left knee. ENCOUNTER: Subsequent ACUITY: 2 day PAIN SCORE: 3/10 LOCATION: cranial Percent stenosis is calculated using the diameter of the stenotic region over the diameter of the nor mal distal internal carotid artery. TECHNIQUE: Bolus infused MRA of the extracranial circulation was performed using a neurovascular coil. Post pro cessing was performed including rotating subvolume maximum intensity projections of each carotid jaiden ry, rotating full volume maximum intensity projections of both carotid arteries, sagittal and coronal sliding thin slab reformations of each carotid artery, and left oblique sliding thin slab reformatio n through the aortic arch to include the origin of the arch branch vessels. FINDINGS: AORTIC ARCH: Truncus arch anatomy with common origin of the left common carotid artery and right brachiocephalic a rtery from the arch. No evidence of arch vessel stenosis. RIGHT CAROTID: The common carotid artery is intact. The carotid bulb has a normal configuration without ulceration or narrowing. The internal carotid artery lumen is smooth without stenosis. The external carotid ar lili is intact. LEFT CAROTID: The common carotid artery is intact. The carotid bulb has a normal configuration without ulceration or narrowing. The internal carotid artery lumen is smooth without stenosis. The external carotid ar lili is intact. VERTEBRALS: The vertebral arteries have a symmetric diameter. No stenotic lesions are seen. CONCLUSION: No evidence of carotid stenosis. David Bose MD on February 05, 2017 at 17:01 Board Certified Radiologist. This report was verified electronically.
--- NOTE | 2017-02-05 17:56 | MG ---
cc: LORI RUSSO M.D. Lab No: [id number] Date: Age: 46 Sex: F Race: Hyperventilation. Fair effort. Stroke. Right-sided weakness. Seizure. Blinking rapidly. DESCRIPTION OF RECORD: Diffuse alpha and beta rhythms are noted. The recording overall is synchronous and symmetric. One sharp wave is seen over the left frontotemporal head region at epoch 50 and a few more at epoch 65. The patient is noted to be awake right before then. Mild theta slowing is also seen in that head region. Some sharply contoured theta waves are noted bitemporally at epoch 83, although the patient did not really reach stage II sleep. Photic stimulation was performed without significant posterior driving. IMPRESSION: Some left temporal slowing is noted at times slightly sharply contoured. Left temporal head region should be ruled out. MD MARIBEL Moore/ROMINA /5:01 PM /5:56 PM
[2017-02-05] MEDS ORDERED: METOPROLOL TARTRATE 25 MG TAB PO SCH (21:00)
== END 2017-02-05 19:00 | disposition home or self-care (01) ==
LOC: NEPC 15:16 → NEDA 20:42 → NEPGCP 22:13
PROVIDERS: ADMIT Hospitalist; ATTEND Hospitalist
DX: G40.909 Epilepsy, unspecified, not intractable, without status epilepticus (principal); Z86.73 Personal history of transient ischemic attack (TIA), and cerebral infarction without residual deficits; Z79.82 Long term (current) use of aspirin; Z79.899 Other long term (current) drug therapy; Z79.01 Long term (current) use of anticoagulants; R94.31 Abnormal electrocardiogram [ECG] [EKG]; D64.9 Anemia, unspecified; R00.8 Other abnormalities of heart beat; I63.9 Cerebral infarction, unspecified; G45.9 Transient cerebral ischemic attack, unspecified
CPT/HCPCS: 70450; 70544; 70548; 70553; 71010; 80048; 80053; 82550; 84484; 85025; 85610; 85730; 92610; 93005; 95819; 96125; 97161; 97166; 99285; A9579; G0378; G8987; G8988; G8996; G8997; G8998; G9168; G9169; G9170

== ENCOUNTER 2017-04-15 16:30 | Inpatient (IN) | payer OTHER, MEDICARE ==
[~2017-04-15] VITALS: Ht 165.1 cm; Wt 111.5 kg
[~2017-04-15 16:30] MED LIST changes: +ASPI325T PO; -ASPI81CH CHEW; +LEVE250 PO; -LEVE500T8 PO
[2017-04-15 16:38] VITALS: BP 199/97; PULSE 91; RESP 14; TEMP 97.8; O2SAT 97
[2017-04-15 16:47] VITALS: BP 180/95; PULSE 108; RESP 30; TEMP 98.5; O2SAT 98
[2017-04-15] MEDS ORDERED: SODIUM CHLOR 0.9% 1000 ML INJ 1,000 ML IV ONE (16:58)
[2017-04-15 17:03] VITALS: BP 156/77; PULSE 103; RESP 18; O2SAT 100; O2SAT 98
[2017-04-15 17:06] LABS: I-STAT POTASSIUM 3.8 MMOL/L (3.5-4.9); I-STAT SODIUM 139 MMOL/L (138-146)
--- NOTE | 2017-04-15 17:06 | RADRPT ---
EXAM DATE/TIME: 04/15/2017 16:57 [facility] COMPARISON: MRI BRAIN W & W/O CONTRAST, February 04, 2017, 23:39. CT BRAIN W/O CONTRAST, February 04, 2017, 19:55. INDICATIONS : Stroke alert; right sided weakness. RADIATION DOSE: 36.35 CTDIvol (mGy) This report was called by Dr. Arthur to Dr. Sharpe at 5: 03 PM MEDICAL HISTORY : Non-responsive. SURGICAL HISTORY : Non-responsive. ENCOUNTER: Initial ACUITY: 1 day PAIN SCALE: Non-responsive LOCATION: cranial TECHNIQUE: Multiple contiguous axial images were obtained of the head. Using automated exposure control and adj ustment of the mA and/or kV according to patient size, radiation dose was kept as low as reasonably a chievable to obtain optimal diagnostic quality images. DICOM format image data is available electro nically for review and comparison. FINDINGS: CEREBRUM: The ventricles are normal for age. No evidence of midline shift, mass lesion, hemorrhage or acute in farction. No extra-axial fluid collections are seen. POSTERIOR FOSSA: The cerebellum and brainstem are intact. The 4th ventricle is midline. The cerebellopontine angle i s unremarkable. EXTRACRANIAL: The visualized portion of the orbits is intact. SKULL: The calvaria is intact. No evidence of skull fracture. CONCLUSION: Negative noncontrast head CT. David Arthur MD on April 15, 2017 at 17:04 Board Certified Radiologist. This report was verified electronically.
[2017-04-15 17:09] LABS: AUTOMATED NEUTROPHIL # 4.2 TH/MM3 (1.8-7.7); BASOPHIL # 0.1 TH/MM3 (0-0.2); BASOPHIL % 1.7 % (0.0-2.0); EOSINOPHIL % 0.3 % (0.0-4.0); HEMATOCRIT 39.4 % (35.0-46.0); HEMO FLAGS DIFF FINAL; LYMPH % 35.8 % (9.0-44.0); LYMPHOCYTE # 2.7 TH/MM3 (1.0-4.8); MEAN CORPUSCULAR HEMOGLOBIN 29.5 PG (27.0-34.0); MEAN CORPUSCULAR HGB CONC 33.2 % (32.0-36.0); MONO % 5.4 % (0.0-8.0); NEUT % 56.8 % (16.0-70.0); PLATELET COUNT 328 TH/MM3 (150-450); RED BLOOD COUNT 4.43 MIL/MM3 (4.00-5.30); RED CELL DISTRIBUTION WIDTH 12.7 % (11.6-17.2); WHITE BLOOD COUNT 7.5 TH/MM3 (4.0-11.0)
[2017-04-15 17:19] LABS: APTT (PATIENT) 26.4 SEC (24.3-30.1); INTERNATIONAL NORMALIZED RATIO 0.9 RATIO; PROTHROMBIN TIME - PATIENT 9.8 SEC (9.8-11.6)
[2017-04-15 17:26] LABS: BETA HCG QUANT LESS THAN 1 MIU/ML (0-5)
[2017-04-15] MEDS ORDERED: SODIUM CHLOR 0.9% 1000 ML INJ 1,000 ML IV SCH (17:30)
[2017-04-15 17:32] LABS: CREATINE KINASE 79 U/L (26-192)
--- NOTE | 2017-04-15 17:43 | PD ---
HPI Chief Complaint: Neuro Symptoms/ Deficits Time Seen by Provider: 16:52 Travel History International Travel<30 days: No Contact w/Intl Traveler<30days: No Traveled to known affect area: No History of Present Illness HPI This is a 46 year old female history of diabetes mellitus, seizure disorder, TIAs, who presents via private vehicle with weakness to her right side. Patient is unable to give history of what has transpired previously. According to her daughter, the patient has had intermittent episodes of weakness and decreased level of consciousness over the last 3 days. Daughter reports that been worse over today. She was reluctant to come to the hospital all morning. She was made a stroke alert as we did not have this history prior to her arrival. When the patient arrived, she had 3 out of 5 weakness to her right upper and right lower extremity. She had stuttering speech. There were no other focal deficits noted. There is no reported history of seizure activity prior to this episode. PFSH Past Medical History Hx Anticoagulant Therapy: Yes Anemia: Yes (RECD TRANSFUSIONS 12/06/07) Blood Disorders: Yes Anxiety: No Depression: No Heart Rhythm Problems: No Cancer: No Cardiovascular Problems: Yes High Cholesterol: No Chemotherapy: No Chest Pain: Yes Congestive Heart Failure: No Cerebrovascular Accident: Yes Diabetes: No Diminished Hearing: No Endocrine: No Gastrointestinal Disorders: No Glaucoma: No Genitourinary: No Hepatitis: No Hiatal Hernia: No Hypertension: Yes Immune Disorder: No Implanted Vascular Access Dvce: Yes Medical other: Yes (STROKE 2007, ANEMIA) Musculoskeletal: Yes Neurologic: Yes (TIA) Psychiatric: No Reproductive: No Respiratory: No Immunizations Current: Yes Radiation Therapy: No Thyroid Disease: No Tetanus Vaccination: Unknown ?: Not : 7 Para: 6 Miscarriage: 1 : 0 Tubal Ligation: Yes Past Surgical History Abdominal Surgery: No 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 Cardiac Surgery: No Ear Surgery: No Endocrine Surgery: No Eye Surgery: No Genitourinary Surgery: No Gynecologic Surgery: Yes (PARTIAL HYSTERECTOMY) Hysterectomy: Yes Joint Replacement: Yes (lt knee 2016) Neurologic Surgery: No Oral Surgery: No Pacemaker: No Thoracic Surgery: No Other Surgery: Yes Social History Alcohol Use: No Tobacco Use: No Substance Use: No Allergies-Medications (Allergen,Severity, Reaction): Coded Allergies: No Known Allergies (Verified , 04/15/17) Reported Meds & Prescriptions Reported Meds & Active Scripts Active Keppra (Levetiracetam) 250 Mg Tab 750 Mg PO BID Plavix (Clopidogrel Bisulfate) 75 Mg Tab 75 Mg PO DAILY Reported Aspirin 325 Mg Tab 325 Mg PO DAILY Metoprolol Tartrate 50 Mg Tab 50 Mg PO BID Butalbital-Acetaminophen 50-325 Mg Tab 1 Tab PO Q12HR PRN Do not exceed 6 tablets per day. Review of Systems ROS Limitations: Clinical Condition, Poor Historian, Other: (patient unable to provide history as to what transpired earlier to her presentation.) Except as stated in HPI: all other systems reviewed are Neg HENT: No: Headaches Cardiovascular: No: Chest Pain or Discomfort, Palpitations Respiratory: No: Cough, Shortness of Breath Gastrointestinal: No: Nausea, Vomiting, Abdominal Pain Genitourinary: No: Dysuria, Incontinence Musculoskeletal: Positive: Weakness (right upper and right lower), No: Pain Neurologic: Positive: Weakness, Other (stuttering speech), No: Headache (right upper and right lower extremity), Incontinence, Seizures (none reported) Physical Exam Narrative GENERAL: Well-developed well-nourished female in no acute respiratory distress. SKIN: Focused skin assessment warm/dry. HEAD: Atraumatic. Normocephalic. EYES: Extraocular motions were intact. No scleral icterus. No injection or drainage. ENT: No nasal bleeding or discharge. Mucous membranes pink and moist. NECK: Trachea midline. Supple. No JVD appreciated. CARDIOVASCULAR: Regular rate and rhythm. No murmur appreciated. RESPIRATORY: No accessory muscle use. Clear to auscultation. Breath sounds equal bilaterally. GASTROINTESTINAL: Abdomen soft, obese, non-tender, nondistended. MUSCULOSKELETAL: No obvious deformities. No clubbing. No cyanosis. No edema. NEUROLOGICAL: Awake and alert. No obvious cranial nerve deficits. Motor 3+ out of 5 on the right upper and right lower extremity. 5 out of 5 strength in the left upper and left lower extremity. NIH stroke scale was 6.. Normal speech. Data Data Last Documented VS Vital Signs Date Time Temp Pulse Resp B/P (MAP) Pulse Ox O2 Delivery O2 Flow Rate FiO2 04/15/17 17:03 103 18 156/77 (103) 100 Nasal Cannula 2.00 04/15/17 16:[address] Brain W/O Iv Contrast(Rout) (04/15/17 ) Diet Npo (04/15/17 Dinner) Activity Bed Rest (04/15/17 ) Electrocardiogram (04/15/17 ) I-Stat Creatinine (04/15/17 16:58) I-Stat Profile (04/15/17 16:58) Prothrombin Time / Inr (Pt) (04/15/17 16:58) Act Partial Throm Time (Ptt) (04/15/17 16:58) Complete Blood Count With Diff (04/15/17 16:58) Fibrinogen (04/15/17 16:58) Creatine Kinase (Cpk) (04/15/17 16:58) Troponin I (04/15/17 16:58) Ua Includes Microscopic (04/15/17 16:58) Drug Screen, Random Urine (04/15/17 16:58) Type And Screen (04/15/17 16:58) Beta Hcg (Quant/Titer) (04/15/17 16:58) Consult Neurology (04/15/17 ) Blood Glucose (04/15/17 16:58) Ecg Monitoring (04/15/17 16:58) Neuro Checks Q2HX12,Q4H (04/15/17 16:58) Nursing Bedside Swallow Assess .ONCE (04/15/17 16:58) Iv Access Insert/Monitor (04/15/17 16:58) NPO (04/15/17 16:58) Oximetry (04/15/17 16:58) Oxygen Administration (04/15/17 16:58) Sodium Chlor 0.9% 1000 Ml Inj (Ns 1000 M (04/15/17 16:58) Resp Oxygen Kaushal C Titrat 1-4 L (04/15/17 16:58) Cath For Specimen (04/15/17 16:58) (Hub Use Only)Inp Phy Cons/Ref (04/15/17 17:13) Cta Brain W Iv Contrast W 3d (04/15/17 ) Cta Neck W Iv Contrast W 3d (04/15/17 ) [place] (04/15/17 17:25) Sodium Chlor 0.9% 1000 Ml Inj (Ns 1000 M (04/15/17 17:30) Iohexol 350 Inj (Omnipaque 350 Inj) (04/15/17 18:00) Admit Order (Ed Use Only) (04/15/17 18:31) Labs Laboratory Tests Test 04/15/17 16:50 04/15/17 17:30 White Blood Count 7.5 TH/MM3 Red Blood Count 4.43 MIL/MM3 Hemoglobin 13.1 GM/DL Bedside Hemoglobin 13.9 G/DL Hematocrit 39.4 % Bedside Hematocrit 41.0 % Mean Corpuscular Volume 89.0 FL Mean Corpuscular Hemoglobin 29.5 PG Mean Corpuscular Hemoglobin Concent 33.2 % Red Cell Distribution Width 12.7 % Platelet Count 328 TH/MM3 Mean Platelet Volume 7.5 FL Neutrophils (%) (Auto) 56.8 % Lymphocytes (%) (Auto) 35.8 % Monocytes (%) (Auto) 5.4 % Eosinophils (%) (Auto) 0.3 % Basophils (%) (Auto) 1.7 % Neutrophils # (Auto) 4.2 TH/MM3 Lymphocytes # (Auto) 2.7 TH/MM3 Monocytes # (Auto) 0.4 TH/MM3 Eosinophils # (Auto) 0.0 TH/MM3 Basophils # (Auto) 0.1 TH/MM3 CBC Comment DIFF FINAL Differential Comment Prothrombin Time 9.8 SEC Prothromb Time International Ratio 0.9 RATIO Activated Partial Thromboplast Time 26.4 SEC Fibrinogen 449 mg/dL Bedside Sodium 139 MMOL/L Bedside Potassium 3.8 MMOL/L Bedside Chloride 103 MMOL/L Bedside Blood Urea Nitrogen 7 MG/DL Bedside Creatinine 0.7 MG/DL Bedside Glucose 112 MG/DL Total Creatine Kinase 79 U/L Troponin I LESS THAN 0.02 NG/ML Human Chorionic Gonadotropin, Quant LESS THAN 1 MIU/ML Urine Color LIGHT-YELLOW Urine Turbidity HAZY Urine pH 7.5 Urine Specific [place] 1.016 Urine Protein TRACE mg/dL Urine Glucose (UA) NEG mg/dL Urine Ketones NEG mg/dL Urine Occult Blood NEG Urine Nitrite NEG Urine Bilirubin NEG Urine Urobilinogen LESS THAN 2.0 MG/DL Urine Leukocyte Esterase NEG Urine RBC 1 /hpf Urine WBC 1 /hpf Urine Squamous Epithelial Cells <1 /hpf Urine Bacteria RARE /hpf Urine Opiates Screen NEG Urine Barbiturates Screen POS Urine Amphetamines Screen NEG Urine Benzodiazepines Screen NEG Urine Cocaine Screen NEG Urine Cannabinoids Screen NEG MDM Medical Decision Making Medical Screen Exam Complete: Yes Emergency Medical Condition: Yes Differential Diagnosis CVA versus postictal state versus seizure versus metabolic derangement Narrative Course 46-year-old female she diabetes mellitus, seizure disorder, TIAs, hypertension, who presents today with complaints right sided weakness. Concern was we were not exactly sure when it started. Reported initially was half hour before she arrived. Patient was made a stroke alert. At that time she met criteria for TPA. After the CT scan came back negative for acute process, I discussed with her the details and risks and benefits of TPA. In the presence of the nurse Tresa, patient refused TPA. Upon getting further information from the sister and daughter, it appears that she's been waxing and waning over the last 3 days with altered mental status and weakness. She will be admitted to the [facility] service. Dr. Isaac Echeverria was made aware when she was a stroke alert and will see her in consultation. He was made aware that she refused the TPA. He is requested a CT a [place] bolus and a CTA of the carotids. Diagnosis Primary Impression: CVA versus TIA Additional Impressions: Diabetes mellitus Hyperlipidemia Seizure disorder Admitting Information Admitting Physician Requests: Admit Mario Sharpe MD Apr 15, 2017 17:43
[2017-04-15] MEDS ORDERED: IOHEXOL 350 MG/ML 10 ML VIAL (for RAD DIAG) IV PUSH ONE (18:00)
[2017-04-15 18:02] LABS: BACTERIA, URINE RARE /hpf; BLOOD, URINE NEG (NEG); GLUCOSE,URINE NEG (NEG); KETONE, URINE NEG (NEG); NITRITE,URINE NEG (NEG); PH, URINE 7.5 (5.0-8.5); SQUAMOUS EPITHELIAL CELL URINE <1 /hpf (0-5); URINE COLOR LIGHT-YELLOW (YELLW/STRAW)
--- NOTE | 2017-04-15 18:11 | RADRPT ---
EXAM DATE/TIME: 04/15/2017 17:35 [facility] COMPARISON: No previous studies available for comparison. INDICATIONS : Stroke alert; dysphasia. IV CONTRAST: 75 cc Omnipaque 350 (iohexol) IV ; Cumulative dose for multiple exams. RADIATION DOSE: 55.75 CTDIvol (mGy) ; Patient body habitus; Combined Studies MEDICAL HISTORY : None SURGICAL HISTORY : None. ENCOUNTER: Initial ACUITY: 1 day PAIN SCALE: 0/10 LOCATION: cranial TECHNIQUE: Volumetric scanning was performed using a multi-row detector CT scanner. The data was post processed with a variety of visualization algorithms including full volume maximum intensity projection, multi -planar sliding thin slab reformation, curved planar reformation, and surface rendering techniques. Using automated exposure control and adjustment of the mA and/or kV according to patient size, radiat ion dose was kept as low as reasonably achievable to obtain optimal diagnostic quality images. DICO M format image data is available electronically for review and comparison. FINDINGS: Examination is limited with suboptimal opacification of the distal intracranial branches. Anterior circulation: Distal intracranial internal carotid arteries are patent with flow extending to the middle and anteri or cerebral arteries. There is suboptimal opacification of the distal M2 branches. There is no eviden ce for aneurysm, vessel truncation or significant stenosis, and no evidence for vascular malformation . Posterior circulation: Symmetric distal vertebral arteries with flow extending to basilar artery. There is no evidence for aneurysm, vessel truncation or stenosis, and no evidence for vascular malformation. CONCLUSION: 1. Unremarkable limited CTA examination of the head. No evidence of large vessel occlusion, as questi oned. Rhett Aguilera MD on April 15, 2017 at 18:01 Board Certified Radiologist. This report was verified electronically.
--- NOTE | 2017-04-15 18:21 | RADRPT ---
EXAM DATE/TIME: 04/15/2017 17:35 [facility] COMPARISON: No previous studies available for comparison. INDICATIONS : Stroke alert; dysphasia. IV CONTRAST: 75 cc Omnipaque 350 (iohexol) IV ; Cumulative dose for multiple exams. RADIATION DOSE: 55.75 CTDIvol (mGy) ; Combined studies; Patient body habitus MEDICAL HISTORY : Stroke. SURGICAL HISTORY : None. ENCOUNTER: Initial ACUITY: 1 day PAIN SCALE: 0/10 LOCATION: Bilateral neck Elevated flow velocities and ICA/CCA ratios have been found to correlate with increased degrees of vessel stenosis, calculated as percentage of diameter relative to a normal segment of distal ICA/CCA. TECHNIQUE: Volumetric scanning was performed using a multirow detector CT scanner. The data was post processed with a variety of visualization algorithms including full-volume maximum intensity projection, multip lanar sliding thin-slab reformation, curved-planar reformation, and surface-rendering techniques. Us ing automated exposure control and adjustment of the mA and/or kV according to patient size, radiatio n dose was kept as low as reasonably achievable to obtain optimal diagnostic quality images. DICOM f ormat image data is available electronically for review and comparison. FINDINGS: Examination is slightly limited by patient's body habitus. AORTIC ARCH: Bovine configuration two vessel arch anatomy. No evidence of ostial narrowing. RIGHT CAROTID: The common carotid artery is intact. The carotid bulb has a normal configuration without ulceration o r narrowing. The internal carotid artery lumen is smooth without stenosis. The external carotid jaiden ry is intact. LEFT CAROTID: The common carotid artery is intact. The carotid bulb has a normal configuration without ulceration or narrowing. The internal carotid artery lumen is smooth without stenosis. The external carotid ar lili is intact. VERTEBRALS: The vertebral arteries have a symmetric but small diameter. No significant stenosis or dissection. CONCLUSION: 1. Unremarkable cervical CTA examination. 2. No evidence for significant flow-limiting stenosis or dissection involving the carotid or vertebra l arteries. Rhett Aguilera MD on April 15, 2017 at 18:16 Board Certified Radiologist. This report was verified electronically.
[2017-04-15 18:32] VITALS: BP 154/80; PULSE 62; RESP 16; O2SAT 100
--- NOTE | 2017-04-15 18:46 | HHI.HP ---
[facility] Service [facility] Primary Care Physician Non-Staff Admission Diagnosis cva vs seizure, diabetes, hypertension Diagnoses: Chief Complaint: slurred speech, right arm weakness Travel History International Travel<30 Days: No Contact w/Intl Traveler <30 Da: No Traveled to Known Affected Are: No History of Present Illness 46 y/o female with a history of Seizures, TIA, and CVA months ago of presented to the ED by family after having slurred speech, right sided weakness. Patient remembers feeling tired, waking up in the morning with headache, and being unable to talk with her daughter, having right sided weakness. Per the family, she was seen having slurred speech, and was confused. According to her daughter , the patient has had intermittent episodes of weakness and decreased level of consciousness over the last 3 days. Daughter reports that been worse over today. She was reluctant to come to the hospital all morning. She was made a stroke alert as we did not have this history prior to her arrival. When the patient arrived, she had 3 out of 5 weakness to her right upper and right lower extremity. She had stuttering speech. There were no other focal deficits noted. There is no reported history of seizure activity prior to this episode. Says she is not compliant with antiseizure meds. Says she thinks she had a seizure 2 days ago as she did woke up with bitten tongue. Denies any chest pain or sob. No n/v/d/c. Says her speech improved and right leg strength is at baseline. Also right arm weakness improving. Review of Systems Except as stated in HPI: all other systems reviewed are Neg Past Family Social History Past Medical History Seizures TIA CVA 2 months ago Past Surgical History Loop recorder Left knee replacement Partial hysterectomy Reported Medications Reported Meds & Active Scripts Active Keppra (Levetiracetam) 250 Mg Tab 750 Mg PO BID Plavix (Clopidogrel Bisulfate) 75 Mg Tab 75 Mg PO DAILY Reported Aspirin 325 Mg Tab 325 Mg PO DAILY Metoprolol Tartrate 50 Mg Tab 50 Mg PO BID Butalbital-Acetaminophen 50-325 Mg Tab 1 Tab PO Q12HR PRN Do not exceed 6 tablets per day. Allergies: Coded Allergies: No Known Allergies (Verified , 04/15/17) Family History Family history significant for Lupus (mother and sister), DM, Leukemia, HTN, hypothyroidism, seizures. Dad: Kidney disease, DM Social History Denies alcohol use, illicit drug use or tobacco use Physical Exam Vital Signs Vital Signs Date Time Temp Pulse Resp B/P (MAP) Pulse Ox O2 Delivery O2 Flow Rate FiO2 04/15/17 18:32 62 16 154/80 (104) 100 Nasal Cannula 2.00 04/15/17 17:03 103 18 156/77 (103) 100 Nasal Cannula 2.00 04/15/17 17:03 18 98 Nasal Cannula 2.00 04/15/17 17:03 98 Nasal Cannula 2.00 04/15/17 16:47 98.5 108 30 180/95 (123) 98 Room Air 04/15/17 16:45 98 Nasal Cannula 2.00 04/15/17 16:38 97.8 91 14 199/97 (131) 97 Physical Exam GENERAL: This is a well-nourished, well-developed patient, in bed, appears sleepy SKIN: No rashes, ecchymoses or lesions. Cool and dry. HEAD: Atraumatic. Normocephalic. No temporal or scalp tenderness. EYES: Pupils equal round and reactive. Extraocular motions intact. No scleral icterus. No injection or drainage. ENT: Nose without bleeding, purulent drainage or septal hematoma. Throat without erythema, tonsillar hypertrophy or exudate. Uvula midline. Airway patent. NECK: Trachea midline. No JVD or lymphadenopathy. Supple, nontender, no meningeal signs. CARDIOVASCULAR: Regular rate and rhythm without murmurs, gallops, or rubs. RESPIRATORY: Clear to auscultation. Breath sounds equal bilaterally. No wheezes , rales, or rhonchi. GASTROINTESTINAL: Abdomen soft, obese, non-tender, nondistended. No hepato- splenomegaly, or palpable masses. No guarding. MUSCULOSKELETAL: Extremities without clubbing, cyanosis, or edema. No joint tenderness, effusion, or edema noted. No calf tenderness. Negative Homans sign bilaterally. NEUROLOGICAL: Awake and alert. Cranial nerves II through XII intact. 4/5 right upper extremity strength. Otherwise strength grossly normal. No sensory deficit. Mildly slurred speech. Laboratory Laboratory Tests Test 04/15/17 16:50 04/15/17 17:30 White Blood Count 7.5 Red Blood Count 4.43 Hemoglobin 13.1 Bedside Hemoglobin 13.9 Hematocrit 39.4 Bedside Hematocrit 41.0 Mean Corpuscular Volume 89.0 Mean Corpuscular Hemoglobin 29.5 Mean Corpuscular Hemoglobin Concent 33.2 Red Cell Distribution Width 12.7 Platelet Count 328 Mean Platelet Volume 7.5 Neutrophils (%) (Auto) 56.8 Lymphocytes (%) (Auto) 35.8 Monocytes (%) (Auto) 5.4 Eosinophils (%) (Auto) 0.3 Basophils (%) (Auto) 1.7 Neutrophils # (Auto) 4.2 Lymphocytes # (Auto) 2.7 Monocytes # (Auto) 0.4 Eosinophils # (Auto) 0.0 Basophils # (Auto) 0.1 CBC Comment DIFF FINAL Differential Comment Prothrombin Time 9.8 Prothromb Time International Ratio 0.9 Activated Partial Thromboplast Time 26.4 Fibrinogen 449 Bedside Sodium 139 Bedside Potassium 3.8 Bedside Chloride 103 Bedside Blood Urea Nitrogen 7 Bedside Creatinine 0.7 Bedside Glucose 112 Total Creatine Kinase 79 Troponin I LESS THAN 0.02 Human Chorionic Gonadotropin, Quant LESS THAN 1 Urine Color LIGHT-YELLOW Urine Turbidity HAZY Urine pH 7.5 Urine Specific Wright 1.016 Urine Protein TRACE Urine Glucose (UA) NEG Urine Ketones NEG Urine Occult Blood NEG Urine Nitrite NEG Urine Bilirubin NEG Urine Urobilinogen LESS THAN 2.0 Urine Leukocyte Esterase NEG Urine RBC 1 Urine WBC 1 Urine Squamous Epithelial Cells <1 Urine Bacteria RARE Urine Opiates Screen NEG Urine Barbiturates Screen POS Urine Amphetamines Screen NEG Urine Benzodiazepines Screen NEG Urine Cocaine Screen NEG Urine Cannabinoids Screen NEG Result Diagram: 04/15/17 1650 Imaging Last Impressions Neck CTA 04/15/17 0000 Signed Impressions: Service Date/Time: Saturday, April 15, 2017 17:35 - CONCLUSION: 1. Unremarkable cervical CTA examination. 2. No evidence for significant flow-limiting stenosis or dissection involving the carotid or vertebral arteries. Rhett Aguilera MD Head CTA 04/15/17 0000 Signed Impressions: Service Date/Time: Saturday, April 15, 2017 17:35 - CONCLUSION: 1. Unremarkable limited CTA examination of the head. No evidence of large vessel occlusion, as questioned. Rhett Aguilera MD Head CT 04/15/17 0000 Signed Impressions: Service Date/Time: Saturday, April 15, 2017 16:57 - CONCLUSION: Negative noncontrast head CT. MD Elvi Francois VTE Risk Assessment Elvi VTE Risk Assessment: Mod/High Risk (score >= 2) Caprini Risk Assessment Model Point Value = 1 Point Value = 2 Point Value = 3 Point Value = 5 Age 41-60 Minor surgery BMI > 25 kg/m2 Swollen legs Varicose veins or History of unexplained or recurrent spontaneous Oral contraceptives or hormone replacement Sepsis (< 1 month) Serious lung disease, including pneumonia (< 1 month) Abnormal pulmonary function Acute myocardial infarction Congestive heart failure (< 1 month) History of inflammatory bowel disease Medical patient at bed rest Age 61-74 Arthroscopic surgery Major open surgery (> 45 min) Laparoscopic surgery (> 45 min) Malignancy Confined to bed (> 72 hours) Immobilizing plaster cast Central venous access Age >= 75 History of VTE Family history of VTE Factor V Leiden Prothrombin [id number] Lupus anticoagulant Anticardiolipin antibodies Elevated serum homocysteine Heparin-induced thrombocytopenia Other congenital or acquired thrombophilia Stroke (< 1 month) Elective arthroplasty Hip, pelvis, or leg fracture Acute spinal cord injury (< 1 month) Prophylaxis Regimen Total Risk Factor Score Risk Level Prophylaxis Regimen 0-1 Low Early ambulation 2 Moderate Order ONE of the following: *Sequential Compression Device (SCD) *Heparin 5000 units SQ BID 3-4 Higher Order ONE of the following medications: *Heparin 5000 units SQ TID *Enoxaparin/Lovenox 40 mg SQ daily (WT < 150 kg, CrCl > 30 mL/min) *Enoxaparin/Lovenox 30 mg SQ daily (WT < 150 kg, CrCl > 10-29 mL/min) *Enoxaparin/Lovenox 30 mg SQ BID (WT < 150 kg, CrCl > 30 mL/min) AND/OR *Sequential Compression Device (SCD) 5 or more Highest Order ONE of the following medications: *Heparin 5000 units SQ TID (Preferred with Epidurals) *Enoxaparin/Lovenox 40 mg SQ daily (WT < 150 kg, CrCl > 30 mL/min) *Enoxaparin/Lovenox 30 mg SQ daily (WT < 150 kg, CrCl > 10-29 mL/min) *Enoxaparin/Lovenox 30 mg SQ BID (WT < 150 kg, CrCl > 30 mL/min) AND *Sequential Compression Device (SCD) Assessment and Plan Assessment and Plan 46 y/o female with a history of Seizures, TIA, and CVA 2 months ago of presented to the ED by family after having a seizure and slurred speech. TIA, r/o CVA, expressive aphasia, patient with right sided weakness and slurred speech, refused TPA CT brain reviewed and negative EKG reviewed no change from baseline -Neuro checks -Consult neuro for recommendations, Dr Echeverria recommends assessing [place] with further imaging. CTA neck and CTA brain reviewed and normal. -Resume home medication Plavix and asa -Monitor telemetry Seizure, noncompliance with meds -Seizure precautions -EEG ordered -Cont home medication Keppra -Await neurology recommendations DVT prophylaxis: SCDs, lovenox Discussed Condition With patient, nurse, family at bedside Physician Certification 2 Midnight Certification Type: Admission for Inpatient Services Order for Inpatient Services The services are ordered in accordance with Medicare regulations or non- Medicare payer requirements, as applicable. In the case of services not specified as inpatient-only, they are appropriately provided as inpatient services in accordance with the 2-midnight benchmark. Estimated LOS (days): 3 days is the estimated time the patient will need to remain in the hospital, assuming treatment plan goals are met and no additional complications. Post-Hospital Plan: Home Charity Azul MD Apr 15, 2017 18:46
[2017-04-15 19:30] VITALS: BP 133/74; PULSE 81; RESP 18; O2SAT 100; O2SAT 98
--- NOTE | 2017-04-15 19:38 | MB ---
cc: LORI RUSSO DATE OF CONSULTATION: 04/15/2017. HISTORY OF PRESENT ILLNESS: This is a 46-year-old right-handed woman who has been in the hospital multiple times. I last saw her in May of last year. Please refer to that note for an extensive review of all of her workup in the past and her past history. She is followed by Dr. Teixeira. She has a history of right-sided numbness, possible TIAs, old left cerebellar infarct, slight enhancement of the surface of her cortex in the past. MRA neck and [place] of [place] negative. Elevated AP/CR ratio in 2007. Otherwise hypercoagulation screens have been negative. Multiple MRIs and CTAs - no new strokes. She has been on aspirin and Plavix and recently on Plavix and aspirin. She was on Aggrenox at one time. She had an EEG done in January of last year which showed some sharp waves in the left temporal region and she has been on Keppra after having a witnessed grand mal seizure 750 twice a day. She says she has had a headache for three days and it has been assumed in the past that maybe she has complicated migraines. I tried her on Calan at one time. She takes Plavix and aspirin at this time. She is also on Keppra 750 twice a day. She said today she had some trouble sort of thinking and was not thinking quite right or talking quite right. She came into the emergency room. She did not notice any weakness on the right side. She felt lightheadedness and then the emergency room doctor thought she was weak on the right side and she was called a stroke alert and then she seemed to get better on her right sided weakness. No definite seizure at this time grand mal. Her teaching young has a loop recorder in her. She has had several normal EEGs in the past. SOCIAL HISTORY: She is not a smoker or a drinker. She lives with her daughter. MEDICATIONS: 1. Aspirin 325. 2. Metoprolol. 3. Fioricet. 4. Plavix. 5. Keppra 750 twice a day. ALLERGIES: NO KNOWN DRUG ALLERGIES. PHYSICAL EXAMINATION: GENERAL: She is obese. VITAL SIGNS: She is in sinus rhythm. Blood pressure initially 199/97 and now 154/80, 16, 62 afebrile. NECK: There are no carotid bruits. HEART: Regular rhythm. I do not detect a murmur. NEUROLOGICAL EXAMINATION: Pupils are equal. Visual samson are full. Face is symmetric with normal sensation. Tongue was midline. There is no drift but she has some giveway weakness on the right finger extensors and triceps. Bilateral lower extremity strength was normal; again, some giveway weakness on the right but she can overcome it. Normal strength. Toes are downgoing bilaterally. DTRs are 2+. There is no ankle clonus. Pinprick seemed diminished on the right face slightly compared to the left otherwise intact. She is not ataxic on [id number]. Speech is fluent. She is not aphasic. She speaks in a whisper. She looks a little depressed but denies any depression. LABS: CBC is normal. RPR has been negative. Rheumatoid factor, ALISA have been normal. Antiphospholipid antibodies have been negative. Urine drug screen positive for barbiturates only. Urinalysis is negative. Coags are negative. Basic metabolic profile, troponin, CPK, CBC all normal. IMAGING STUDIES: She had a head CT done which was normal. She had a CTA of her head which was normal. She had a CTA of the neck, which was normal. She had a normal MRI as far as anything new except for the old left cerebellar strokes back in January of this year. IMPRESSION: 1. Some hypertension. 2. History of seizures in the past. RECOMMENDATIONS AND PLAN: 1. Will increase her Keppra to 1500 twice a day. 2. Get her blood pressure under control. Will refer that to the medical team. 3. I will check an MRI and an EEG. 4. She may be able to be discharged tomorrow if her MRI is negative and the EEG is done. MD MARIBEL Moore/ROMINA /7:01 PM /7:20 PM
--- NOTE | 2017-04-15 20:03 | RADRPT ---
EXAM DATE/TIME: 04/15/2017 19:32 [facility] COMPARISON: CTA BRAIN W 3D RECON, April 15, 2017, 17:35. CTA CAROTID ARTERIES W 3D RECON, April 15, 2017 , 17:35. CT BRAIN W/O CONTRAST, April 15, 2017, 16:57. MRI BRAIN W & W/O CONTRAST, February 04 17, 23:39. INDICATIONS : CVA vx Seizure. MEDICAL HISTORY : Hypertension. Seizures. SURGICAL HISTORY : Total knee replacement, right. Hysterectomy. ENCOUNTER: Initial ACUITY: 1 day PAIN SCORE: 0/10 LOCATION: cranial TECHNIQUE: Multiplanar, multisequence MRI of the brain was performed without contrast. FINDINGS: CEREBRUM: The ventricles are normal for age. No evidence of midline shift, mass lesion, hemorrhage or acute in farction. No extraaxial fluid collections are seen. The pituitary gland and suprasellar cistern are normal in configuration. WHITE MATTER: No significant signal abnormalities are seen in the white matter. POSTERIOR FOSSA: Small, old infarcts are again noted of the cerebellum. DIFFUSION IMAGING: No focal areas of restricted diffusion are seen. No evidence of acute infarction. EXTRACRANIAL: The visualized portions of the orbits and paranasal sinuses are unremarkable. CONCLUSION: No acute infarct or other acute intracranial abnormality. David Arthur MD on April 15, 2017 at 19:59 Board Certified Radiologist. This report was verified electronically.
[2017-04-15 21:00] VITALS: BP 127/77; PULSE 65; TEMP 98.3; O2SAT 98
--- NOTE | 2017-04-15 21:47 | EKG ---
Date Performed: 04/15/2017 Time Performed: 17:17:06 PTAGE: 46 years EKG: Sinus rhythm WITH OCCASIONAL VENTRICULAR PREMATURE COMPLEXES POSSIBLE INFERIOR MYOCARDIAL INFARCTION ABNORMAL ECG PREVIOUS TRACING : 02/04/2017 19.46 No significant change from previous tracing noted. DOCTOR: Carlos Jang Interpretating Date/Time 04/15/2017 21:47:00
[2017-04-16 00:58] VITALS: BP 113/69; PULSE 70; RESP 20; TEMP 98.1; O2SAT 100
[2017-04-16 04:51] VITALS: BP 132/69; PULSE 64; RESP 20; TEMP 97.7; O2SAT 98
--- NOTE | 2017-04-16 07:34 | HHI.PR ---
Subjective Remarks sr Objective Vital Signs Date Time Temp Pulse Resp B/P (MAP) Pulse Ox O2 Delivery O2 Flow Rate FiO2 04/16/17 04:51 97.7 64 20 132/69 (90) 98 04/16/17 00:58 98.1 70 20 113/69 (84) 100 04/15/17 21:00 98.3 65 127/77 (94) 98 04/15/17 19:30 81 18 133/74 (93) 100 Nasal Cannula 2.00 04/15/17 19:30 98 Nasal Cannula 2.00 04/15/17 18:32 62 16 154/80 (104) 100 Nasal Cannula 2.00 04/15/17 17:05 Nasal Cannula 2.00 04/15/17 17:03 103 18 156/77 (103) 100 Nasal Cannula 2.00 04/15/17 17:03 18 98 Nasal Cannula 2.00 04/15/17 17:03 98 Nasal Cannula 2.00 04/15/17 16:47 98.5 108 30 180/95 (123) 98 Room Air 04/15/17 16:45 98 Nasal Cannula 2.00 04/15/17 16:38 97.8 91 14 199/97 (131) 97 Result Diagram: 04/15/17 1650 Objective Remarks moves all well and nl speech nl Assessment and Plan Assessment and Plan imp mri neg ok to dc on keppra 1500 bid after eeg done bp control Isaac Echeverria MD Apr 16, 2017 07:34
[2017-04-16] MEDS ORDERED: LEVE500 PO (07:44)
[2017-04-16 08:00] VITALS: BP 122/89; PULSE 67; RESP 19; TEMP 97.9; O2SAT 99
[2017-04-16] MEDS ORDERED: levETIRAcetam 500 MG TAB PO SCH (09:00)
--- NOTE | 2017-04-16 09:04 | HHI.PR ---
Subjective Remarks Speech at baseline. Also weakness back at baseline. Says she was not eating much as doesn't have appetite. She feels much better today. NO seizure overnight. No chest aguila or sob. No new motor or sensory deficit. No blurry vision. Objective Vitals Vital Signs Date Time Temp Pulse Resp B/P (MAP) Pulse Ox O2 Delivery O2 Flow Rate FiO2 04/16/17 04:51 97.7 64 20 132/69 (90) 98 04/16/17 00:58 98.1 70 20 113/69 (84) 100 04/15/17 21:00 98.3 65 127/77 (94) 98 04/15/17 19:30 81 18 133/74 (93) 100 Nasal Cannula 2.00 04/15/17 19:30 98 Nasal Cannula 2.00 04/15/17 18:32 62 16 154/80 (104) 100 Nasal Cannula 2.00 04/15/17 17:05 Nasal Cannula 2.00 04/15/17 17:03 103 18 156/77 (103) 100 Nasal Cannula 2.00 04/15/17 17:03 18 98 Nasal Cannula 2.00 04/15/17 17:03 98 Nasal Cannula 2.00 04/15/17 16:47 98.5 108 30 180/95 (123) 98 Room Air 04/15/17 16:45 98 Nasal Cannula 2.00 04/15/17 16:38 97.8 91 14 199/97 (131) 97 Result Diagram: 04/15/17 1650 Imaging Last Impressions Brain MRI 04/15/17 1911 Signed Impressions: Service Date/Time: Saturday, April 15, 2017 19:32 - CONCLUSION: No acute infarct or other acute intracranial abnormality. David Arthur MD Neck CTA 04/15/17 0000 Signed Impressions: Service Date/Time: Saturday, April 15, 2017 17:35 - CONCLUSION: 1. Unremarkable cervical CTA examination. 2. No evidence for significant flow-limiting stenosis or dissection involving the carotid or vertebral arteries. Rhett Aguilera MD Head CTA 04/15/17 0000 Signed Impressions: Service Date/Time: Saturday, April 15, 2017 17:35 - CONCLUSION: 1. Unremarkable limited CTA examination of the head. No evidence of large vessel occlusion, as questioned. Rhett Aguilera MD Head CT 04/15/17 0000 Signed Impressions: Service Date/Time: Saturday, April 15, 2017 16:57 - CONCLUSION: Negative noncontrast head CT. David Arthur MD Objective Remarks GENERAL: This is a well-nourished, well-developed patient, in bed, appears sleepy ENT: Nose without bleeding, purulent drainage or septal hematoma. Toungue is normal , no gigns of patient biting her tongue. Throat without erythema, tonsillar hypertrophy or exudate. Uvula midline. Airway patent. NECK: Trachea midline. No JVD or lymphadenopathy. Supple, nontender, no meningeal signs. CARDIOVASCULAR: Regular rate and rhythm without murmurs, gallops, or rubs. RESPIRATORY: Clear to auscultation. Breath sounds equal bilaterally. No wheezes , rales, or rhonchi. GASTROINTESTINAL: Abdomen soft, obese, non-tender, nondistended. No hepato- splenomegaly, or palpable masses. No guarding. MUSCULOSKELETAL: Extremities without clubbing, cyanosis, or edema. No joint tenderness, effusion, or edema noted. No calf tenderness. Negative Homans sign bilaterally. NEUROLOGICAL: Awake and alert. Cranial nerves II through XII intact. Strength grossly normal. No sensory deficit. Normal speech. A/P Assessment and Plan 46 y/o female with a history of Seizures, TIA, and CVA 2 months ago of presented to the ED by family after having a seizure and slurred speech. TIA, r/o CVA, expressive aphasia, patient with right sided weakness and slurred speech, refused TPA on admission, symptoms back to normal within 24 hrs - CT brain reviewed and negative - Consult neuro for recommendations, Dr Echeverria recommends assessing [place] of [place] with further imaging. CTA neck and CTA brain reviewed and normal. - Continue home medication Plavix and asa -Monitor telemetry Seizure, noncompliance with meds -Seizure precautions -EEG ordered -Increase Keppra to 1500 mg po bid per neurology recommendations. -Appreciate neurology recommendations DVT prophylaxis: SCDs, lovenox Discussed Condition With patient, nurse DC plan: Improved, back to baseline. No seizures. Cleared by neurology Dr Echeverria for DC after EEG done. Patient to be discharged on Keppra 1500 mg po bid Discharge Planning DC home in stable condition to follow up as OP with PCP and consultants. Activity ad herbert as tolerated. Discussed with the patient DO NOT DRIVE UNTIL CLEARED BY NEUROLOGY DOCTOR. Meds per med reconciliations. Diet: healthy heart diet Charity Azul MD Apr 16, 2017 09:04
--- NOTE | 2017-04-16 09:05 | HHI.DCPOC ---
Discharge Care Plan Goals to Promote Your Health * To prevent worsening of your condition and complications * To maintain your health at the optimal level Directions to Meet Your Goals Take your medications as prescribed Follow your dietary instruction Follow activity as directed Keep your appointments as scheduled Take your immunizations and boosters as scheduled If your symptoms worsen call your PCP, if no PCP go to Urgent Care Center or Emergency Room Smoking is Dangerous to Your Health. Avoid second hand smoke Call the 24-hour hour crisis hotline for domestic abuse at Charity Azul MD Apr 16, 2017 09:05
--- NOTE | 2017-04-16 21:52 | MG ---
cc: ARACELI MERCER M.D. Lab No: Date: 04/16/2017 Age: Sex: F Race: REQUESTING PHYSICIAN Dr. Echeverria. INTRODUCTION An EEG was obtained on this 46-year-old patient being evaluated for right-sided weakness, decreased level of consciousness. DESCRIPTION The EEG shows intermittent but consistent left hemisphere slowing and there are some associated sharp discharges with the slowing. Otherwise there is lot of alpha activity and beta rhythms bilaterally but appearing to be present on the right when the left hemisphere might show the slower rhythms in the theta and even delta range. There is awake and asleep. There are beta rhythms diffusely bilaterally during the sleep recording. Photic stimulation showed some driving response though mild, bilaterally. Hyperventilation was not performed. INTERPRETATION Abnormal EEG because of the intermittent, frequent left hemispheric slowing with some associated sharp discharges which are probably of an epileptiform significance. No ictal pattern. MD KYLE Flowers/DARIANA /6:33 PM /9:47 PM
== END 2017-04-16 11:31 | disposition home or self-care (01) | DRG 69 ==
LOC: NEPE 16:30 → NEDA 18:33 → N05A 20:45
PROVIDERS: ADMIT Hospitalist; ATTEND Hospitalist
DX: G45.9 Transient cerebral ischemic attack, unspecified (principal); G81.91 Hemiplegia, unspecified affecting right dominant side; I10 Essential (primary) hypertension; E11.9 Type 2 diabetes mellitus without complications; G40.909 Epilepsy, unspecified, not intractable, without status epilepticus; E78.5 Hyperlipidemia, unspecified; Z96.653 Presence of artificial knee joint, bilateral; R47.81 Slurred speech; Z91.14 Patient's other noncompliance with medication regimen; Z79.82 Long term (current) use of aspirin; Z86.73 Personal history of transient ischemic attack (TIA), and cerebral infarction without residual deficits; Z79.02 Long term (current) use of antithrombotics/antiplatelets
CPT/HCPCS: 70450; 70496; 70498; 70551; 80307; 81001; 82435; 82550; 82565; 82947; 84132; 84295; 84484; 84520; 84702; 85025; 85384; 85610; 85730; 86850; 86900; 86901; 93005; 95819; 96360; J7030; Q9967

== ENCOUNTER 2017-11-28 10:53 | Emergency (ER) | payer OTHER ==
[~2017-11-28] VITALS: Ht 165.1 cm; Wt 110.0 kg
[~2017-11-28 10:53] MED LIST changes: +ASPI-183 PO; -ASPI325T PO; -LEVE250 PO; +LEVE500 PO
[2017-11-28 11:01] VITALS: BP 135/67; PULSE 74; RESP 18; TEMP 98.1; O2SAT 100
[2017-11-28] MEDS ORDERED: AMLO2.5T PO (11:15)
[2017-11-28] MEDS ORDERED: TRIL150T PO (11:19)
[2017-11-28] MEDS ORDERED: ROBA500T PO (11:25)
--- NOTE | 2017-11-28 11:26 | PD ---
HPI Chief Complaint: Back/ Neck Pain or Injury Time Seen by Provider: 11:18 Travel History International Travel<30 days: No Contact w/Intl Traveler<30days: No Traveled to known affect area: No History of Present Illness HPI 47-year-old female presents emergency department for evaluation of low back pain , acute onset 2 days ago when she lifted up her son. Constant, moderate in severity. Patient is primarily on the left but radiates across to the right lower back. It radiates into her left buttock. Denies any saddle paresthesia, no loss of bowel or bladder, no lower extremity weakness. Patient has had this pain in the past but it seems more easily relieved with ibuprofen. It has not been helping this time. She denies any urinary symptoms. No fever or chills. Denies IV drug use. PFSH Past Medical History Hx Anticoagulant Therapy: Yes Anemia: Yes (RECD TRANSFUSIONS 12/06/07) Blood Disorders: Yes Anxiety: No Depression: No Heart Rhythm Problems: No Cancer: No Cardiovascular Problems: Yes High Cholesterol: No Chemotherapy: No Chest Pain: Yes Congestive Heart Failure: No Cerebrovascular Accident: Yes Diabetes: No Diminished Hearing: No Endocrine: No Gastrointestinal Disorders: No Glaucoma: No Genitourinary: No Hepatitis: No Hiatal Hernia: No Hypertension: Yes Immune Disorder: No Implanted Vascular Access Dvce: Yes Medical other: Yes (STROKE 2008, ANEMIA) Musculoskeletal: Yes Neurologic: Yes (TIA) Psychiatric: No Reproductive: No Respiratory: No Immunizations Current: Yes Radiation Therapy: No Seizures: Yes Thyroid Disease: No Tetanus Vaccination: Unknown ?: Not : 7 Para: 6 Miscarriage: 1 : 0 Tubal Ligation: Yes Past Surgical History Abdominal Surgery: No Body Medical Devices: [employer] Cardiac Surgery: No Ear Surgery: No Endocrine Surgery: No Eye Surgery: No Genitourinary Surgery: No Gynecologic Surgery: Yes (PARTIAL HYSTERECTOMY) Hysterectomy: Yes Joint Replacement: Yes (lt knee 2016) Neurologic Surgery: No Oral Surgery: No Pacemaker: No Thoracic Surgery: No Other Surgery: Yes Social History Alcohol Use: No Tobacco Use: No Substance Use: No Allergies-Medications (Allergen,Severity, Reaction): Coded Allergies: No Known Allergies (Verified Adverse Reaction, Unknown, 11/28/17) Reported Meds & Prescriptions Reported Meds & Active Scripts Active Robaxin (Methocarbamol) 500 Mg Tab 500 Mg PO QID PRN Keppra (Levetiracetam) 500 Mg Tab 1,500 Mg PO Q12HR Plavix (Clopidogrel Bisulfate) 75 Mg Tab 75 Mg PO DAILY Reported Trileptal (Oxcarbazepine) 150 Mg Tab 150 Mg PO DAILY Amlodipine (Amlodipine Besylate) 2.5 Mg Tab 2.5 Mg PO DAILY Aspirin 325 Mg Tab 325 Mg PO DAILY Metoprolol Tartrate 50 Mg Tab 50 Mg PO BID Butalbital-Acetaminophen 50-325 Mg Tab 1 Tab PO Q12HR PRN Do not exceed 6 tablets per day. Review of Systems Except as stated in HPI: all other systems reviewed are Neg Physical Exam Narrative GENERAL: Well-nourished, well-developed female patient ambulatory with a non- ataxic gait, no acute distress. SKIN: Focused skin assessment warm/dry. HEAD: Normocephalic. EYES: No scleral icterus. No injection or drainage. NECK: Supple, trachea midline. No JVD or lymphadenopathy. CARDIOVASCULAR: Regular rate and rhythm without murmurs, gallops, or rubs. RESPIRATORY: Breath sounds equal bilaterally. No accessory muscle use. GASTROINTESTINAL: Abdomen soft, non-tender, nondistended. No rebound tenderness. No guarding. MUSCULOSKELETAL: No cyanosis, or edema. No CVA tenderness. Patient has 5+ strength equal bilateral lower extremities. Sensation intact distal affected extremities. No clonus. Downward facing Babinski. No spinal tenderness. BACK: without obvious deformity. No CVA tenderness. Tenderness elicited palpation in the lumbar paraspinous musculature. Data Data Last Documented VS Vital Signs Date Time Temp Pulse Resp B/P (MAP) Pulse Ox O2 Delivery O2 Flow Rate FiO2 11/28/17 11:01 98.1 74 18 135/67 (89) 100 Orders Orders Ketorolac Inj (Toradol Inj) (11/28/17 11:30) Orphenadrine Inj (Norflex Inj) (11/28/17 11:30) Ed Discharge Order (11/28/17 11:24) [facility] Medical Decision Making Medical Screen Exam Complete: Yes Emergency Medical Condition: Yes Medical Record Reviewed: Yes Differential Diagnosis Lumbar strain versus discogenic pain versus radiculopathy Narrative Course 47-year-old female presents emergency department for evaluation of low back pain , acute onset 2 days ago after lifting up her son. Patient appears without distress. She has no spinal tenderness. There is paraspinous muscular tenderness. This is likely a muscle strain. Patient is provided pain control, counseled on care, encouraged to follow-up with primary care provider. She agrees to return immediately with acute worsening symptoms. Diagnosis Primary Impression: Low back strain Qualified Codes: S39.012A - Strain of muscle, fascia and tendon of lower back , initial encounter Referrals: Primary Care Physician Patient Instructions: General Instructions, Low Back Strain (ED) Departure Forms: Tests/Procedures, Work Release Enter return to work date: November 30, 2017 Additional Instructions: Ice and/or warm moist heat may help to alleviate symptoms Avoid activity that exacerbates pain Avoid prolonged bedrest Follow-up with a primary care provider Return immediately with acute worsening symptoms Med/Other Pt SpecificInfo: Prescription(s) given Scripts Methocarbamol (Robaxin) 500 Mg Tab 500 MG PO QID Y for MUSCLE SPASM, #20 TAB 0 Refills Prov: Miladis Calabrese 11/28/17 Disposition: 01 DISCHARGE HOME Condition: Stable Miladis Calabrese November 28, 2017 11:26
[2017-11-28] MEDS ORDERED: ORPHENADRINE INJ 60 MG/2 ML AMP IM ONE (11:30)
[2017-11-28] MEDS ORDERED: KETOROLAC TROMETHAMINE 60 MG/2 ML (IM) VIAL IM ONE (11:30)
== END 2017-11-28 11:34 | disposition home or self-care (01) ==
LOC: NEPK 10:53
DX: S39.012A Strain of muscle, fascia and tendon of lower back, initial encounter (principal); X50.0XXA Overexertion from strenuous movement or load, initial encounter; Y93.89 Activity, other specified
CPT/HCPCS: 96372; 99283; J1885; J2360

== ENCOUNTER 2018-03-11 05:17 | Inpatient (IN) ==
[2018-03-11] MEDS ORDERED: Chlorhexidine Gluconate 2% 1 Pack (2 Cloths) TOPICAL SCH (05:45)
[2018-03-11] MEDS ORDERED: Metoprolol Tartrate 25 MG Tablet PO SCH (05:45)
[2018-03-11] MEDS ORDERED: Dexamethasone Inj 20 MG/5 ML Vial IV.PUSH SCH (05:46)
[2018-03-11] MEDS ORDERED: Sodium Chlor 0.9% Inj 500 ML IV.SIG SCH (06:00)
[2018-03-11] MEDS ORDERED: Vancomycin Inj 1,000 MG in Sodium Chlor 0.9% Inj 250 ML IV.SIG SCH (06:00)
[2018-03-11] MEDS ORDERED: Chlorhexidine 4% Topical 120 APPLIC/120 ML Bottle TOPICAL SCH (06:00)
[2018-03-11] MEDS ORDERED: Bupivacaine/Dextrose 0.75% Inj 2 ML Ampul ONE (06:57)
[2018-03-11] MEDS ORDERED: CEFAZOLIN IV.SIG SCH ×2 (07:00)
[2018-03-11] MEDS ORDERED: SODIUM CHLORIDE IV.SIG SCH ×2 (07:00)
[2018-03-11] MEDS ORDERED: Post-op Orders (for Pharmacy) OTHER STA (07:01)
[2018-03-11] MEDS ORDERED: Zolpidem Tartrate 5 MG Tablet PO PRN (07:01)
[2018-03-11] MEDS ORDERED: Bupivacaine PF 0.5% Inj 30 ML Vial ONE (08:21)
[2018-03-11] MEDS ORDERED: Tranexamic Acid Inj 3,000 MG in Sodium Chlor 0.9% Inj 100 ML P-ARTICULR SCH (08:30)
[2018-03-11] MEDS ORDERED: TRANEXAMIC ACID IV.SIG SCH (08:30)
[2018-03-11] MEDS ORDERED: Sodium Chlor 0.9% Inj 73.07 ML, Ropivacaine 0.5% PF Inj 24.63 ML, Ketorolac Inj 30 MG, ... P-ARTICULR SCH ×5 (08:30)
[2018-03-11] MEDS ORDERED: SODIUM CHLOR 0.9% IV.SIG SCH (08:30)
[2018-03-11] MEDS ORDERED: Bupivacaine Liposomal PF 1.3% Inj 20 ML Vial ONE (10:17)
[2018-03-11] MEDS ORDERED: fentaNYL Citrate Inj 100 MCG/2 ML Ampul ONE ×2 (10:47)
[2018-03-11] MEDS ORDERED: Morphine Inj 4 MG/ML Vial ONE ×2 (10:48→11:33)
[2018-03-11] MEDS ORDERED: Morphine Sulfate Inj 8 MG/ML Vial ONE (10:53)
[2018-03-11] MEDS ORDERED: *morphine SULFATE 10 MG/ML PERIprocedure ONLY ONE (11:02)
[2018-03-11] MEDS ORDERED: *Meperidine Inj 25 MG/ML Vial PERIprocedural Use ONLY ONE (11:11)
--- NOTE | 2018-03-11 11:34 | XR ---
EXAM DATE: 03/11/2018 11:30 AM EDT AGE/SEX: 47 years / Female INDICATIONS: Post-op right total knee arthroplasty. CLINICAL DATA: This is the patient's initial encounter. Patient reports that signs and symptoms have been present for 1 day and indicates a pain score of 10/10. MEDICAL/SURGICAL HISTORY: Arthritis. Hypertension. Anemia. Stroke. Total knee replacement, left. Hysterectomy. COMPARISON: No prior exams available for comparison. FINDINGS: AP and lateral views of the knee following arthroplasty reveals a prosthesis in anatomic alignment. F racture is not appreciated. Air is seen within the joint capsule. CONCLUSION: Status post total knee arthroplasty. Venkatesh Stout MD FACR Electronically signed by: Venkatesh Stout MD 03/11/2018 11:33 AM EDT
[2018-03-11] MEDS ORDERED: Lidocaine PF 1% Inj 5 ML Syringe INFILTRATN ONE (12:00)
[2018-03-11] MEDS ORDERED: Glycopyrrolate Inj 1 MG/5 ML Syringe IV.PUSH ONE (12:00)
[2018-03-11] MEDS ORDERED: Neostigmine Inj 5 MG/5 ML Syringe IV.PUSH ONE (12:00)
--- NOTE | 2018-03-11 12:02 | MP ---
cc: Florentino Roberts MD DATE OF OPERATION: 03/11/2018 PREOPERATIVE DIAGNOSIS: Right knee osteoarthritis. POSTOPERATIVE DIAGNOSIS: Right knee osteoarthritis. PROCEDURE PERFORMED: Right total knee arthroplasty. SURGEON: Florentino Roberts MD. SECURITY REP: JEAN CLAUDE Agosto. ANESTHESIA: General with femoral nerve block. ESTIMATED BLOOD LOSS: 150 mL. TOURNIQUET TIME: 33 minutes at 250 mmHg. COMPLICATIONS: None. IMPLANTS USED: DePuy Attune size 5 narrow posterior stabilized femoral component, size 4 rotating platform tibia baseplate, size 6-mm polyethylene tibial insert, size 35 patella. INDICATIONS: This patient is a 47-year-old female with history of severe osteoarthritis involving the right knee. She has severe disabling pain with standing, walking, ambulation, weightbearing activities, and severe pain at rest. She also has a history of rheumatoid arthritis. She has failed greater than 3 months of nonoperative conservative treatment to include medication therapy, injections, ambulatory assistive aids, home exercise program, activity modification, and weight loss attempts. X-rays of the right knee reveal severe osteoarthritis with associated rheumatoid changes. She has joint space narrowing, subchondral sclerosis, subchondral cyst, and osteophyte formation with deformity and subluxation. The patient was counseled on risks, benefits, and alternatives to a total knee arthroplasty. The risks were discussed, which include, but are not limited to anesthesia, bleeding, infection, damage to nerves and blood vessels, pain, stiffness, fracture, dislocation, failure of components, blood clots, pulmonary embolism, and even . The patient's pain is very severe and she favored benefits over the risks, and did wish to proceed with surgery. PROCEDURE IN DETAIL: Written consent was obtained. The patient was identified by name, taken to the operating room, and placed supine on the table. General anesthesia was administered, as well as 2 grams of IV Ancef and 1 gram of IV vancomycin. A well-padded tourniquet was placed on the right thigh. The right lower extremity was prepped and draped using isopropyl alcohol, Hibiclens solution, and ChloraPrep suture. After timeout was performed, an Esmarch bandage was used to exsanguinate the right lower extremity. Tourniquet was inflated to 250 mmHg. A longitudinal incision was made over the anterior aspect of the right knee. A medial parapatellar arthrotomy was performed. The patella was everted and patellar resection guide was used to resect 9 mm of patella. The size 35-mm guide was placed. Three drills were placed and the 35-mm trial fit well. Attention was turned to the femur. An intramedullary guide emanuel was placed. The distal femoral guide was set to remove 10 mm of distal femur, 5 degrees off the anatomic valgus alignment, and an oscillating saw was used to perform the distal femoral cut. Attention was turned to the tibia. An extramedullary guide emanuel was set to remove 6 mm off the lowest portion of the medial tibial plateau. The tibial guide was then placed and tibial cut was performed. A 5-mm spacer block showed full extension. Attention was turned back to the femur, where an AP sizing block measured a size 5. The anterior reference 3-degree external rotation guide was used to pin a size [address] The anterior and posterior chamfer cuts were performed. A size 5 PCL box was pinned in place and PCL was bowed with an oscillating saw. The medial and lateral meniscus remnants were removed, as well as bone and soft tissue debris from the posterior portion of the knee. A size 4 tibia base was pinned in place. The tibia was drilled and punched. All components were brought in and was cemented in place. With the current components, the leg could achieve full extension to 0 degrees and flexion to 140, with no evidence of tibial liftoff. Varus/valgus balance appeared appropriate and symmetric. With the tourniquet deflated, Bovie cautery was used for hemostasis. The knee was thoroughly irrigated with sterile saline and pulse lavage antibiotic-impregnated solution. The arthrotomy incision was closed with #1 Vicryl suture and subcuticular layer 2-0 Vicryl suture. Skin was closed with Dermabond. Sterile dressing applied. The patient tolerated the procedure well. No intraoperative complications noted. Gigi Krishnamurthy, physician billing assistant certified, was present during the entire procedure to include patient positioning and the procedure itself. The medical necessity of a physician billing assistant was indicated in this case due to the complexity of the procedure. He assisted with appropriate manipulation of the leg and also retraction of muscle, tendon, bone, and neurovascular structures. He assisted with preparation of bone and also implantation of the prosthetic replacement. MD RIKKI Robertson/rebecca , 10:15 AM , 10:23 AM
[2018-03-11] MEDS ORDERED: *Ondansetron Inj 4 MG/2 ML Vial PERIprocedural Use ONLY ONE (14:29)
[2018-03-11] MEDS ORDERED: ceFAZolin 2 GM Premix Inj 2 GM/50 ML PIGGYBACK IV.SIG ONE (16:02)
[2018-03-11] MEDS: Multivitamin/Minerals Therapeutic Tablet PO SCH ×2 (16:16→20:17)
[2018-03-11] MEDS: amLODIPine 5 MG Tablet PO SCH (16:18)
[2018-03-11] MEDS: Pantoprazole Sodium 20 MG DR Tablet PO SCH (16:19)
[2018-03-11] MEDS: Senna/Docusate Sodium 8.6/50 MG Tablet PO SCH ×2 (16:19→20:17)
[2018-03-11] MEDS: ceFAZolin Inj 2,000 MG in Sodium Chlor 0.9% Inj 80 ML IV.SIG SCH ×2 (16:19→19:38)
[2018-03-11] MEDS ORDERED: *Promethazine Inj 25 MG/ML Vial PERIprocedural use ONLY ONE (17:29)
[2018-03-11] MEDS ORDERED: *HYDROmorphone PF Inj 1 MG/ML Ampul PERIprocedural Use ONLY ONE (17:59)
--- NOTE | 2018-03-11 18:08 | P.CON ---
History of Present Illness Primary Care Provider: No Primary Care Physician History of Present Illness: 39-year-old black female admitted for right TKA. Hospitalist consulted for medical management. Patient has been suffering from chronic right knee pain for quite some time secondary to her rheumatoid arthritis. Ultimately has undergone right TKA. Patient has had a history of rheumatoid arthritis for which she has received medical management in the past. Says in the past few months she has not been on any special medicine for this anymore. Takes amlodipine for her hypertension as well as metoprolol. Used to take a statin. Patient does have a history of stroke and takes aspirin and Plavix with this. Patient did have some nausea and vomiting after trying some Jell-O postop, nausea is now resolved. Review of Systems All other systems reviewed negative except as stated in HPI PMFSH - History History Provided By: Patient - Medical History Medical History: Medical History (Last Reviewed 03/12/18 @ 08:31 by Vipul Araujo MD) CVA (cerebral vascular accident) TIA (transient ischemic attack) Anemia Arthritis GERD (gastroesophageal reflux disease) H/O: hysterectomy Hypertension Seizure disorder as sequela of cerebrovascular accident - Surgical History Surgical History: Surgical History (Last Reviewed 03/12/18 @ 08:31 by Vipul Araujo MD) History of total left knee replacement - Family History Family History: Family History (Last Updated 03/11/18 @ 18:06 by Vipul Arajuo MD) Other COPD (chronic obstructive pulmonary disease) Diabetes Lupus - Tobacco History Second Hand Smoke Exposure: No Tobacco Use In Past 30 Days: No Smoking Status: Never smoker - Alcohol History How Often Do You Have a Drink Containing Alcohol: Never - Substance Use History Substance History: No History of Abuse - Travel History Recent Travel in the [place] Within the Last 8 Weeks: No Recent Travel Out of the Country Within the Last 8 Weeks: No Medications and Allergies Active Medications: Active Medications Hydrocodone Bitart/Acetaminophen (Riley 7.5/325) 1 tab PO Q4H PRN PRN Reason: PAIN LESS THAN 5 ON SCALE Hydrocodone Bitart/Acetaminophen (Riley 7.5/325) 2 tab PO Q6H PRN PRN Reason: PAIN SCALE 5 TO 10 Al Hydroxide/Mg Hydroxide (Milk Of Magnesia Liq) 30 ml PO BID PRN PRN Reason: Mild Constipation Amlodipine Besylate (Norvasc) 5 mg PO DAILY [facility] Last Admin: 03/11/18 16:18 Dose: Not Given Chlorhexidine Gluconate (Chlorhexidine 2% Cloth) 3 pack TOPICAL SAP [facility]PC ARCHITECT [facility] Stop: 03/14/18 05:43 Last Admin: 03/11/18 07:45 Dose: 3 pack Chlorhexidine Gluconate (Hibiclens 4% Topical) 1 applicatio TOPICAL ONCE [facility] Stop: 03/15/18 05:59 Last Admin: 03/11/18 07:45 Dose: Not Given Clopidogrel Bisulfate (Plavix) 75 mg PO DAILY@0800 [facility] Sodium Chloride 73.07 ml/Ropivacaine 24.63 ml/Ketorolac Tromethamine 30 mg/ Epinephrine HCl 0.5 mg/cloNIDine PF Inj 80 mcg 0 ml P-ARTICULR ONCE [facility] Stop: 03/11/18 21:00 Last Admin: 03/11/18 10:00 Dose: 123.15 bag Dexamethasone Sodium Phosphate (Decadron Inj) 10 mg IV.PUSH ONCE [facility] Stop: 03/11/18 21:00 Last Admin: 03/11/18 07:55 Dose: 10 mg Diphenhydramine HCl (Benadryl) 25 mg PO Q6H PRN PRN Reason: ITCHING Hydromorphone HCl (Dilaudid Pf Inj) 1 mg IV.PUSH Q3H PRN PRN Reason: BREAKTHROUGH PAIN Tranexamic Acid 3,000 mg/ (Sodium Chloride) 130 mls @ 200 mls/hr P-ARTICULR ONCE [facility] Stop: 03/11/18 21:00 Last Admin: 03/11/18 10:03 Dose: 200 mls/hr Tranexamic Acid 1,731 mg/ (Sodium Chloride) 117.31 mls @ 200 mls/hr IV.SIG ONCE [facility] Stop: 03/11/18 21:00 Last Infusion: 03/11/18 09:40 Dose: Infused Vancomycin HCl 1,000 mg/ (Sodium Chloride) 250 mls @ 250 mls/hr IV.SIG ONCE [facility] Stop: 03/11/18 21:00 Last Infusion: 03/11/18 09:15 Dose: Infused Cefazolin Sodium 2,000 mg/ (Sodium Chloride) 100 mls @ 200 mls/hr IV.SIG ONCE [facility] Stop: 03/11/18 21:00 Last Infusion: 03/11/18 08:45 Dose: Infused Lactated Ringer's (Lr 1000 Ml Inj) 1,000 mls @ 80 mls/hr IV.CONT .[id number] [facility] Last Admin: 03/11/18 15:56 Dose: 80 mls/hr Cefazolin Sodium 2,000 mg/ (Sodium Chloride) 100 mls @ 200 mls/hr IV.SIG Q6H [facility] Stop: 03/12/18 02:29 Last Admin: 03/11/18 16:19 Dose: Not Given Lactulose (Lactulose Liq) 30 ml PO DAILY PRN PRN Reason: SEVERE CONSITIPATION Metoprolol Tartrate (Lopressor) 25 mg PO SAP [facility]PC ARCHITECT [facility] Stop: 03/14/18 05:43 Last Admin: 03/11/18 08:10 Dose: 25 mg Metoprolol Tartrate (Lopressor) 25 mg PO BID [facility] Multivitamins/Minerals (Theragran-M) 1 tab PO BID [facility] Stop: 05/10/18 08:59 Last Admin: 03/11/18 16:16 Dose: Not Given Ondansetron HCl (Zofran Inj) 4 mg IV.PUSH Q6H PRN PRN Reason: NAUSEA OR VOMITING Last Admin: 03/11/18 14:31 Dose: 4 mg Pantoprazole Sodium (Protonix) 20 mg PO DAILY [facility] Last Admin: 03/11/18 16:19 Dose: Not Given Povidone Iodine (Betadine 5% Antisepsis Kit) 1 applicatio EACH NARE SAP [facility]PC ARCHITECT [facility] Stop: 03/14/18 05:43 Last Admin: 03/11/18 08:00 Dose: 1 applicatio Povidone Iodine (Betadine 7.5% Scrub) 1 applicatio TOPICAL ONCE [facility] Stop: 03/15/18 05:59 Last Admin: 03/11/18 07:45 Dose: 1 applicatio Senna/Docusate Sodium (Evelin-Colace) 1 tab PO BID [facility] Last Admin: 03/11/18 16:19 Dose: Not Given Sodium Chloride (Ns Flush) 2 ml IV.FLUSH BID [facility] Last Admin: 03/11/18 11:37 Dose: 2 ml Sodium Chloride (Ns Flush) 2 ml IV.FLUSH UNSCH PRN PRN Reason: FLUSH AFTER USING IV ACCESS Zolpidem Tartrate (Ambien) 5 mg PO HS PRN PRN Reason: INSOMNIA Allergies Allergy/AdvReac Type Severity Reaction Status Date / Time No Known Allergies Allergy Verified 03/11/18 08:03 Home Medications Medication Instructions Recorded Confirmed Type amlodipine 5 mg PO DAILY 03/04/18 03/11/18 History aspirin [Aspir-81] 81 mg PO DAILY 03/04/18 03/04/18 History clopidogrel [Plavix] 75 mg PO DAILY 03/04/18 03/04/18 History lacosamide [Vimpat] 100 mg PO BID 03/04/18 03/11/18 History metoprolol tartrate 25 mg PO BID 03/04/18 03/11/18 History omeprazole 20 mg PO DAILY 03/04/18 03/11/18 History Physical Exam Vital signs: Vital Signs 03/11/18 07:29 03/11/18 10:40 03/11/18 10:45 Temperature 98.2 F 97.4 F L Pulse Rate 73 93 H 72 Respiratory Rate 16 12 12 Blood Pressure 137/85 134/61 129/60 Pulse Oximetry 100 100 100 03/11/18 11:00 03/11/18 11:15 03/11/18 11:20 Temperature Pulse Rate 69 72 Respiratory Rate 15 12 12 Blood Pressure 122/61 113/55 L Pulse Oximetry 100 98 03/11/18 11:30 03/11/18 11:45 03/11/18 12:00 Temperature Pulse Rate 66 63 63 Respiratory Rate 8 L 11 L 11 L Blood Pressure 102/55 L 101/58 L 101/58 L Pulse Oximetry 96 94 L 94 L 03/11/18 12:15 03/11/18 12:30 03/11/18 12:45 Temperature Pulse Rate 61 61 57 L Respiratory Rate 10 L 13 11 L Blood Pressure 102/60 109/63 101/61 Pulse Oximetry 96 94 L 99 03/11/18 13:00 03/11/18 13:15 03/11/18 13:30 Temperature Pulse Rate 61 62 55 L Respiratory Rate 11 L 11 L 12 Blood Pressure 101/65 101/65 95/58 L Pulse Oximetry 97 97 94 L 03/11/18 13:45 03/11/18 14:00 03/11/18 14:30 Temperature Pulse Rate 59 L 63 54 L Respiratory Rate 10 L 10 L 11 L Blood Pressure 105/64 103/64 95/53 L Pulse Oximetry 98 95 97 03/11/18 14:45 03/11/18 15:00 03/11/18 15:15 Temperature Pulse Rate 58 L 58 L 60 Respiratory Rate 10 L 10 L 11 L Blood Pressure 96/54 L 96/52 L 95/52 L Pulse Oximetry 97 98 98 03/11/18 15:25 03/11/18 15:45 03/11/18 16:48 Temperature Pulse Rate 88 63 64 Respiratory Rate 14 12 22 Blood Pressure 95/54 L 118/64 117/74 Pulse Oximetry 97 100 97 Intake & Output 03/10/18 03/11/18 03/11/18 18:59 06:59 18:59 Intake Total 3367.31 / 3367.31 Output Total 100 / 100 Balance 3267.31 / 3267.31 Weight 115.4 kg Intake: IV 1667.31 / 1667.31 LR 1000 mL Inj 1,000 ML @ 30 1200 / 1200 mls/hr IV.SIG .Q24H [facility] Rx#: [id number] Cyklokapron Inj 1,731 MG In NS 117.31 / 117.31 Inj 100 ML @ 200 mls/hr IV.SIG ONCE [facility] Rx#:[id number] Vancomycin Inj 1,000 MG In NS 250 / 250 Inj 250 ML @ 250 mls/hr IV.SIG ONCE [facility] Rx#:[id number] Ancef Inj 2,000 MG In NS Inj 80 100 / 100 ML @ 200 mls/hr IV.SIG ONCE [facility] Rx#:[id number] Anesthesia Amount 1700 / 1700 Output: Estimated Blood Loss 100 / 100 Other: Weight On Admission 115.4 kg Narrative: VS: afebrile GENERAL: Lying in bed, distress secondary to pain, obese female SKIN: Warm and dry. EYES: Pupils equal and round. No scleral icterus. No injection or drainage. ENT: No nasal bleeding or discharge. Mucous membranes pink and moist. CARDIOVASCULAR: Regular rate and rhythm. no murmurs RESPIRATORY: No accessory muscle use. Clear to auscultation. Breath sounds equal bilaterally. GASTROINTESTINAL: Abdomen soft, non-tender, nondistended. Extremities: No clubbing, cyanosis, or edema. No obvious deformities. MUSCULOSKELETAL: 4/5 right for prescription strength, 5/5 left prescription strength; able to move toes on both feet, right knee and postop dressing NEUROLOGICAL: Awake and alert. No obvious cranial nerve deficits. No facial droop nor slurred speech noted. PSYCHIATRIC: Appropriate mood and affect; insight and judgment normal. Assessment and Plan - Plan Status post right TKA -Pain medication and anticoagulation being managed by primary team Hypertension Continue amlodipine and metoprolol Cerebrovascular disease Resume aspirin and Plavix once cleared with orthopedics Rheumatoid arthritis -No further medical management at this time apart from above pain medication. Thank you for consulting hospitalist service. We will sign off at this time. Please call us for any further questions.
[2018-03-11] MEDS: Metoprolol Tartrate 25 MG Tablet PO SCH (20:17)
[2018-03-12] MEDS: ceFAZolin Inj 2,000 MG in Sodium Chlor 0.9% Inj 80 ML IV.SIG SCH (01:03)
[2018-03-12] MEDS: HYDROmorphone PF Inj 2 MG/ML Vial IV.PUSH PRN ×3 (02:08→20:53)
[2018-03-12 05:40] LABS: Hematocrit 30.6 % (35.0-46.0); Hemoglobin 10.3 gm/dL (11.6-15.3)
[2018-03-12 06:02] LABS: Anion Gap 8 meq/L (5-15); Blood Urea Nitrogen 13 mg/dL (7-18); Calcium 7.9 mg/dL (8.5-10.1); Carbon Dioxide 27.5 meq/L (21.0-32.0); Chloride 103 meq/L (98-107); Glomerular Filtration Rate Greater Than 89 mL/min (>89); Glucose,Random 108 mg/dL (74-106); Potassium 4.1 meq/L (3.5-5.1); Sodium 138 meq/L (136-145)
--- NOTE | 2018-03-12 07:48 | P.PNOP ---
Subjective Interval history: knee is painful. Physical Exam Vital signs: Vital Signs 03/11/18 10:40 03/11/18 10:45 03/11/18 11:00 Temperature 97.4 F L Pulse Rate 93 H 72 69 Respiratory Rate 12 12 15 Blood Pressure 134/61 129/60 122/61 Pulse Oximetry 100 100 100 03/11/18 11:15 03/11/18 11:20 03/11/18 11:30 Temperature Pulse Rate 72 66 Respiratory Rate 12 12 8 L Blood Pressure 113/55 L 102/55 L Pulse Oximetry 98 96 03/11/18 11:45 03/11/18 12:00 03/11/18 12:15 Temperature Pulse Rate 63 63 61 Respiratory Rate 11 L 11 L 10 L Blood Pressure 101/58 L 101/58 L 102/60 Pulse Oximetry 94 L 94 L 96 03/11/18 12:30 03/11/18 12:45 03/11/18 13:00 Temperature Pulse Rate 61 57 L 61 Respiratory Rate 13 11 L 11 L Blood Pressure 109/63 101/61 101/65 Pulse Oximetry 94 L 99 97 03/11/18 13:15 03/11/18 13:30 03/11/18 13:45 Temperature Pulse Rate 62 55 L 59 L Respiratory Rate 11 L 12 10 L Blood Pressure 101/65 95/58 L 105/64 Pulse Oximetry 97 94 L 98 03/11/18 14:00 03/11/18 14:30 03/11/18 14:45 Temperature Pulse Rate 63 54 L 58 L Respiratory Rate 10 L 11 L 10 L Blood Pressure 103/64 95/53 L 96/54 L Pulse Oximetry 95 97 97 03/11/18 15:00 03/11/18 15:15 03/11/18 15:25 Temperature Pulse Rate 58 L 60 88 Respiratory Rate 10 L 11 L 14 Blood Pressure 96/52 L 95/52 L 95/54 L Pulse Oximetry 98 98 97 03/11/18 15:45 03/11/18 16:48 03/11/18 18:00 Temperature Pulse Rate 63 64 66 Respiratory Rate 12 22 14 Blood Pressure 118/64 117/74 115/67 Pulse Oximetry 100 97 99 03/11/18 18:45 03/11/18 20:00 03/12/18 00:00 Temperature 98.4 F 97.7 F 98.4 F Pulse Rate 63 70 71 Respiratory Rate 14 17 15 Blood Pressure 125/67 109/64 115/54 L Pulse Oximetry 100 93 L 96 03/12/18 04:00 Temperature 98 F Pulse Rate 73 Respiratory Rate 19 Blood Pressure 132/68 Pulse Oximetry 94 L Intake & Output 03/11/18 03/12/18 03/12/18 18:59 06:59 18:59 Intake Total 3427.31 / 3427.31 1630 / 1630 Output Total 220 / 220 350 / 350 Balance 3207.31 / 3207.31 1280 / 1280 Weight 115.4 kg 116.2 kg Intake: IV 1667.31 / 1667.31 1150 / 1150 LR 1000 mL Inj 1,000 ML @ 80 1000 / 1000 mls/hr IV.CONT .[id number] [facility] Rx# :[id number] LR 1000 mL Inj 1,000 ML @ 30 1200 / 1200 mls/hr IV.SIG .Q24H [facility] Rx#: [id number] Cyklokapron Inj 1,731 MG In NS 117.31 / 117.31 Inj 100 ML @ 200 mls/hr IV.SIG ONCE [facility] Rx#:[id number] Vancomycin Inj 1,000 MG In NS 250 / 250 Inj 250 ML @ 250 mls/hr IV.SIG ONCE [facility] Rx#:[id number] Ancef 2 GM Premix Inj 2 gm In 50 / 50 50 ml @ 0 mls/hr IV.SIG .STK- MED ONE Rx#:[id number] Ancef Inj 2,000 MG In NS Inj 80 100 / 100 100 / 100 ML @ 200 mls/hr IV.SIG Q6H [facility] Rx#:[id number] Oral 60 / 60 480 / 480 Anesthesia Amount 1700 / 1700 Output: Urine 60 / 60 350 / 350 Emesis 60 / 60 Estimated Blood Loss 100 / 100 Other: Date of Last Bowel Movement 03/10/18 # Emeses 1 Weight On Admission 115.4 kg Narrative: in bed, nad dressing c/d/i neg gabriel nvi Results - Labs CBC & Chem 7: 03/12/18 04:19 03/12/18 04:19 Laboratory Results - last 24 hr 03/11/18 03/12/18 03/12/18 07:00 04:19 04:19 Hgb 10.3 L Hct 30.6 L Sodium 138 Potassium 4.1 Chloride 103 Carbon Dioxide 27.5 Anion Gap 8 BUN 13 Creatinine 0.75 Estimated GFR Greater than 89 Random Glucose 108 H Calcium 7.9 L Blood Type O Positive Blood Type Recheck Required Antibody Screen Negative - Imaging Impressions Knee X-Ray 03/11/18 06:58 CONCLUSION: Status post total knee arthroplasty. Venkatesh Stout MD FACR Assessment and Plan - Ortho Post Op Day # 1 - Assessment and Plan s/p R TKA wbat ok to maintain dressing unless saturated resume plavix PT d/c planning home with [facility] and pt - possibly Wed. f/up dr. jc 2 weeks
[2018-03-12] MEDS ORDERED: ceFAZolin Inj 2,000 MG in Sodium Chlor 0.9% Inj 80 ML IV.SIG SCH ×2 (08:00→08:45)
[2018-03-12] MEDS: Multivitamin/Minerals Therapeutic Tablet PO SCH ×2 (09:28→20:54)
[2018-03-12] MEDS: Pantoprazole Sodium 20 MG DR Tablet PO SCH (09:29)
[2018-03-12] MEDS: amLODIPine 5 MG Tablet PO SCH (09:29)
[2018-03-12] MEDS: Senna/Docusate Sodium 8.6/50 MG Tablet PO SCH ×2 (09:29→20:53)
[2018-03-12] MEDS: Metoprolol Tartrate 25 MG Tablet PO SCH ×2 (09:30→20:54)
[2018-03-13] MEDS: Senna/Docusate Sodium 8.6/50 MG Tablet PO SCH ×2 (07:41→14:36)
[2018-03-13] MEDS: Metoprolol Tartrate 25 MG Tablet PO SCH ×2 (07:42→14:35)
[2018-03-13] MEDS: Pantoprazole Sodium 20 MG DR Tablet PO SCH ×2 (07:42→14:36)
[2018-03-13] MEDS: amLODIPine 5 MG Tablet PO SCH ×2 (07:42→14:36)
[2018-03-13] MEDS: Multivitamin/Minerals Therapeutic Tablet PO SCH ×2 (07:43→14:36)
[2018-03-13 07:45] LABS: Hematocrit 32.6 % (35.0-46.0); Hemoglobin 10.8 gm/dL (11.6-15.3)
[2018-03-13 08:13] LABS: Anion Gap 5 meq/L (5-15); Blood Urea Nitrogen 9 mg/dL (7-18); Chloride 102 meq/L (98-107); Glomerular Filtration Rate Greater Than 89 mL/min (>89); Glucose,Random 126 mg/dL (74-106); Sodium 137 meq/L (136-145)
[2018-03-13 12:47] VITALS: PULSE 86; RESP 16; TEMP 98.2
[2018-03-13 12:48] VITALS: BP 123/74; O2SAT 100
--- NOTE | 2018-03-13 13:47 | P.DCO ---
- Physical Therapy Physical Therapy: Gait training, Safety evaluation Knee: Total knee, Protocol: Right, Full weight bearing Right Lower Extremity Weight Bearing: Weight bearing as tolerated - Nursing RN: 3 days/week x 2 weeks Nursing: Dressing changes Dressing changes: Daily dressing change - Certification Need for Home Health services: I have seen patient Mari Gordon on 03/13/18. My clinical findings support the need for the requested home health care services because: Need for Home Health Services: Limited ability to care for self, High risk of falls Homebound Certification: I certify that my clinical findings support that this patient is homebound because: Homebound Certification: Post-op weakness, Unsteady gait/balance
--- NOTE | 2018-03-13 13:55 | P.PNOP ---
Subjective Interval history: pain tolerable. ready to go home. Physical Exam Vital signs: Vital Signs 03/12/18 16:00 03/12/18 20:00 03/13/18 00:00 Temperature 98.1 F 99.3 F 98.7 F Pulse Rate 73 76 77 Respiratory Rate 18 18 18 Blood Pressure 146/62 H 138/65 98/56 L Pulse Oximetry 99 98 96 03/13/18 04:00 03/13/18 07:39 03/13/18 12:00 Temperature 98.4 F 97.6 F 98.2 F Pulse Rate 75 74 86 Respiratory Rate 18 18 16 Blood Pressure 132/67 112/67 123/74 Pulse Oximetry 96 99 100 Intake & Output 03/12/18 03/13/18 03/13/18 18:59 06:59 18:59 Intake Total 1500 / 1500 750 / 750 Balance 1500 / 1500 750 / 750 Weight 116.2 kg Intake: IV 900 / 900 300 / 300 LR 1000 mL Inj 1,000 ML @ 80 800 / 800 200 / 200 mls/hr IV.CONT .[id number] [facility] Rx# :[id number] Ancef Inj 2,000 MG In NS Inj 80 100 / 100 ML @ 200 mls/hr IV.SIG Q6H [facility] Rx#:[id number] Oral 600 / 600 450 / 450 Other: # Voids 2 1 Date of Last Bowel Movement 03/10/18 03/10/18 03/10/18 Narrative: in bed, nad dressing c/d/i neg homans nvi Results - Labs CBC & Chem 7: 03/13/18 06:00 03/13/18 06:00 Laboratory Results - last 24 hr 03/13/18 03/13/18 06:00 06:00 Hgb 10.8 L Hct 32.6 L Sodium 137 Potassium 4.0 Chloride 102 Carbon Dioxide 30.0 Anion Gap 5 BUN 9 Creatinine 0.59 Estimated GFR Greater than 89 Random Glucose 126 H Calcium 8.0 L Assessment and Plan - Ortho Post Op Day # 2 - Assessment and Plan s/p R TKA wbat ok to maintain dressing unless saturated resume plavix PT d/c planning home with [facility] and pt - cleared today f/up dr. jc 2 weeks
--- NOTE | 2018-04-10 15:06 | MD ---
cc: Florentino Roberts MD DATE OF DISCHARGE: 03/13/2018 ADMITTING DIAGNOSIS: Severe degenerative osteoarthritis, right knee. DISCHARGE DIAGNOSIS: Severe degenerative osteoarthritis, right knee. HISTORY OF PRESENT ILLNESS: Ms. Gordon is a 47-year-old female, who has been a patient of Dr. Florentino Roberts at the orthopedic clinic. Currently, she is being treated for progressive right knee pain. The patient has a history of rheumatoid arthritis, as well as a left total knee arthroplasty. She states currently her right knee has severe aching sensation, aggravated by weightbearing activities. She has no alleviating factors, although in the past, she tried medications, bracing, physical therapy, home exercise program, and multiple corticosteroid injections without relief of symptoms. She does have x-ray evidence of severe degenerative changes of the right knee. While in the office, the patient was counseled on her diagnosis and treatment options. Risks, benefits, and indications discussed. The patient did elect to proceed with surgical intervention to include a right total knee arthroplasty. DATE OF SURGERY: 03/11/2018. SURGERY: Right total knee arthroplasty. HOSPITAL COURSE: Postop after surgery, the patient was admitted to [facility], where she received appropriate medical management, pain control, DVT prophylaxis, as well as physical therapy. DISCHARGE PLAN: Once being discharged from the hospital, the patient is cleared to go home, where she will receive home health care and home physical therapy. She is in stable condition. She may weight bear as tolerated. She has been instructed on wound care management. She has been provided a prescription for pain medication. She has been instructed to resume her anticoagulation medication Plavix, which was restarted during her hospital stay. She has also been provided a followup appointment approximately 2 weeks from her date of surgery. The patient asked appropriate questions, which have been answered. The patient is cleared for discharge. Dictated by JEAN CLAUDE Cha Florentino Roberts MD JWM/rh , 01:59 PM , 02:06 PM
== END 2018-03-13 16:20 | disposition home health service (06) ==
LOC: HSDI 05:17 → N06 19:12
PROVIDERS: ADMIT Orthopaedic Surgery Sports Medicine; ATTEND Orthopaedic Surgery Sports Medicine